=== PATIENT | male | born 1940 | race Hispanic/Latino ===

== ENCOUNTER 2016-12-21 18:20 | Inpatient (IN) | payer MEDICARE ==
[2016-12-21 19:12] LABS: Basophils % (Auto) 0.3 % (0.0-1.8); Eosinophils % (Auto) 1.6 % (0.0-4.3); Hematocrit 36.6 % (35.5-45.6); Hemoglobin 12.7 gm/dl (11.8-15.2); Mean Corpuscular HGB Conc 35 % (32-34); Mean Corpuscular Hemoglobin 32 pg (28-32); Mean Corpuscular Volume 93 fl (84-94); Platelet Count 272 K/mm3 (140-440); Red Blood Count 3.92 M/mm3 (3.65-5.03); Red Cell Distribution Width 14.4 % (13.2-15.2); White Blood Count 8.3 K/mm3 (4.5-11.0)
[2016-12-21 19:27] LABS: Alanine Aminotransferase 11 units/L (7-56); Albumin 3.8 g/dL (3.9-5); Albumin/Globulin Ratio 1.2 %; Alkaline Phosphatase 109 units/L (35-129); Anion Gap 18 mmol/L; BUN/Creatinine Ratio 14.28; Blood Urea Nitrogen 10 mg/dL (9-20); Calcium 9.1 mg/dL (8.4-10.2); Carbon Dioxide 26 mmol/L (22-30); Chloride 98.9 mmol/L (98-107); Creatine Kinase 26 units/L (55-170); Glucose 152 mg/dL (75-100); Lipase 31 units/L (13-60); Potassium 3.8 mmol/L (3.6-5.0); Sodium 139 mmol/L (137-145)
[2016-12-21 19:38] LABS: Bilirubin,Urine NEG (Negative); Blood,Urine NEG (Negative); Ketones,Urine NEG (Negative); Leukocyte Esterase,Urine NEG (Negative); Nitrite,Urine NEG (Negative); Protein,Urine <15 mg/dL mg/dL (Negative); Urobilinogen,Urine < 2.0 mg/dL (<2.0); WBC,Urine < 1.0 /HPF (0.0-6.0)
[2016-12-21 19:50] LABS: Creatine Kinase MB < 1.0 ng/mL (0.0-4.0)
--- NOTE | 2016-12-21 20:21 | Cat Scan Report ---
FINAL REPORT EXAM: CT HEAD/BRAIN WO CON HISTORY: blurred vision and dizziness COMPARISON: None available. TECHNIQUE: Axial images obtained skull base through vertex. FINDINGS: No acute intracranial hemorrhage, midline shift or pathologic extra axial fluid collection. Age related volume loss with compensatory dilatation of the ventricular system and chronic small vessel ischemic disease. Appears to be mild diffuse cerebral edema. 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 This has a area probable spared nodular cortex at its periphery. Intraparenchymal lesion cannot be entirely excluded. Focal volume loss inferior left frontal lobe measuring 2.9 x 0.9 centimeters. This is compatible sequelae of prior ischemia or trauma. Opacification bilateral sphenoid sinuses and right maxillary sinus. Mastoid air cells are clear. IMPRESSION: There is mild diffuse cerebral edema involving the bilateral cerebral hemispheres of uncertain etiology. Some this may relate to underlying small vessel disease. Possibility of active inflammation the brain parenchyma cannot be excluded. MRI the brain with without contrast suggested for further evaluation. Remote appearing infarct left parietal lobe with area of probable spared nodular cortex at its periphery. This finding could also be further evaluated by MRI with without contrast. Mild to moderate volume loss and chronic small vessel ischemic disease. Focal volume loss left frontal lobe compatible sequelae of prior trauma or ischemia.
--- NOTE | 2016-12-21 20:44 | Emergency Department Report ---
HPI - General Chief Complaint: Abdominal Pain Time Seen by Provider: 12/21/16 20:11 - HPI HPI: This is a 76-year-old male who presents to the emergency department by EMS from his [facility] with complaint of a 4-5 day history of some left lower quadrant abdominal and flank pain. He last had a bowel movement about 2 days ago. He says that he does have a history of a previous bowel obstruction. Otherwise he has a past medical history of GERD and seizures. The patient also complains of some blurry vision over the same amount of time. He denies any headache, slurred speech, chest pain, shortness of breath. His daughter is bedside who says that lately he has been having a decline in mental status and she has concern or suspicion for dementia. He has a primary care physician Dr. Lopes, but she is going to find another physician closer to where he lives. ED Past Medical Hx - Past Medical History Hx GERD: Yes Hx Seizures: Yes Hx Psychiatric Treatment: Yes (anxiety) Additional medical history: previous bowel obstruction - Social History Smoking Status: Unknown if ever smoked Substance Use Type: None ED Review of Systems ROS: Stated complaint: LEFT SIDED ABD PAIN,BLURRED VISION Other details as noted in HPI Comment: All other systems reviewed and negative Constitutional: denies: chills, fever Eyes: vision change. denies: eye pain, eye discharge ENT: denies: ear pain, throat pain Respiratory: denies: cough, shortness of breath, wheezing Cardiovascular: denies: chest pain, palpitations Gastrointestinal: abdominal pain. denies: nausea, vomiting Genitourinary: denies: urgency, dysuria Musculoskeletal: denies: back pain, joint swelling, arthralgia Skin: denies: rash, lesions Neurological: denies: headache, weakness, paresthesias Physical Exam - Physical Exam Vital Signs: Vital Signs 12/21/16 18:29 Temperature 98.6 F Pulse Rate 68 Respiratory 15 Rate Blood Pressure 115/36 O2 Sat by Pulse 97 Oximetry Physical Exam: GENERAL: The patient is well-developed well-nourished. HEENT: Normocephalic. Atraumatic. Extraocular motions are intact. Patient has moist mucous membranes. Pupils equal reactive to light bilaterally. No nystagmus. NECK: Supple. Trachea is midline. CHEST/LUNGS: Clear to auscultation. There is no respiratory distress noted. HEART/CARDIOVASCULAR: Regular. There is no tachycardia. There is no gallop rub or murmur. ABDOMEN: Abdomen is soft, nontender. Patient has normal bowel sounds. There is no abdominal distention. SKIN: Skin is warm and dry. NEURO: The patient is awake, alert, and oriented but sometimes the patient is slow to respond and cannot remember answers to questions. The patient is cooperative. The patient has no sensory or motor deficits. The patient has normal speech. MUSCULOSKELETAL: There is no tenderness or deformity. There is no limitation range of motion. There is no evidence of acute injury. ED Course Vital Signs 12/21/16 18:29 Temperature 98.6 F Pulse Rate 68 Respiratory 15 Rate Blood Pressure 115/36 O2 Sat by Pulse 97 Oximetry - Consultations Consultation #1: I spoke to the neurosurgeon at [place], Dr. Ramirez, who recommended a CT angiography of the head and neck. This would show us if there is any type of thrombus or given the IV contrast if there is any small tumor or malignancy as he thinks that the mild diffuse cerebral edema may be secondary to a recent CVA. If the CT angiography does not show any acute process that he does not feel that the person is in any emergent need for transfer but does recommend admission for MRI and/or further workup. 12/21/16 22:34 ED Medical Decision Making - Lab Data Result diagrams: 12/21/16 18:46 12/21/16 18:46 - EKG Data -: EKG Interpreted by Me EKG shows normal: sinus rhythm (with sinus arrhythmia), axis, intervals, QRS complexes, ST-T waves Rate: normal - EKG Data When compared to previous EKG there are: previous EKG unavailable Interpretation: normal EKG - Radiology Data Radiology results: report reviewed interpreted by me: Abdominal x-ray shows nonspecific nonobstructive bowel gas. CT of the head without contrast shows mild diffuse cerebral edema involving the bilateral cerebral hemispheres of uncertain etiology. Some of this may relate to underlying small vessel disease. Possibility of active inflammation of the brain parenchyma cannot be excluded. Recommend MRI. Remote-appearing infarct of left parietal lobe with area of probable spared nodular cortex its periphery. Mild to moderate volume loss and chronic small vessel ischemic disease. Focal volume loss of left frontal lobe compatible sequela of prior trauma or ischemia. CT angiography of the head shows moderate severe calcified plaque along the cavernous in the supraclinoid portions of the internal carotid arteries. Greatest degree of stenosis of 50%. No occlusion. Mild to moderate focal calcified plaque along the right V4 segment of the vertebral artery with estimated stenosis of approximately 30%. Otherwise major intracranial arterial vessels are patent. No area of abnormal hypervascular enhancement of the brain parenchyma. No evidence of arterial malformation. There is persistent prominence of the subcortical white matter along the superior and posterior margins of the right bilateral cerebral hemisphere concerning for cerebral edema. CT angiography of the neck shows moderate severe calcified plaque with the left carotid bifurcation. Estimated stenosis of the proximal 40%. Length of stenosis about 1 cm. Moderate calcified plaque at the right carotid bifurcation with estimated stenosis at the origin of the external carotid artery of 50%. No high-grade stenosis or occlusion of the extracranial portions of the common carotid, internal carotid, vertebral arteries. CT of the abdomen and pelvis without contrast shows no gross focal inflammatory changes of the abdomen and pelvis. Moderate severe calcified plaque along the abdominal aorta. Nodular densities in the septal thickening with associated bronchial wall thickening of the right lower lobe and lingula. Mild to moderate anterior wedging deformity at T12 and T11 level suspected to be chronic. No bony retropulsion. - Medical Decision Making 76-year-old male presents emergency Department with left lower quadrant and/or flank pain with history of previous obstruction. He also complains of some blurry vision going over the past 4-5 days as well. Speaking with his daughter , she has some concern for some signs of dementia or altered mental status. CT of the head was done that showed mild diffuse cerebral edema. After speaking with neurosurgery at [place] a CT angiography of the head and neck was done that showed carotid stenosis but otherwise no obvious thrombus, malignancy and therefore safe by neurosurgery standards to remain at [facility] versus transfer. Regarding his abdominal pain, CT did not show any signs of obstruction. His labs are otherwise mostly unremarkable and does not show any etiology of his symptoms. Vital signs stable throughout his ED course. Patient will be admitted to hospital for further evaluation and has been accepted for admission by the hospitalist. - Differential Diagnosis CVA, TIA, dementia, colitis, diverticulitis, bowel obstruction Critical Care Time: No Critical care attestation.: If time is entered above; I have spent that time in minutes in the direct care of this critically ill patient, excluding procedure time. ED Disposition Clinical Impression: Cerebral edema, Subtherapeutic serum phenytoin level Abdominal pain Qualifiers: Abdominal location: left lower quadrant Qualified Code(s): R10.32 - Left lower quadrant pain Carotid stenosis Qualifiers: Laterality: unspecified laterality Qualified Code(s): I65.29 - Occlusion and stenosis of unspecified carotid artery Disposition: OP ADMIT IP TO THIS HOSP Is pt being admited?: Yes Condition: Stable Referrals: PRIMARY CARE, [Primary Care Provider] - 3-5 Days Time of Disposition: 00:51
--- NOTE | 2016-12-21 21:06 | XRay Report ---
FINAL REPORT EXAM: XR ABDOMEN 2V HISTORY: Abd pain COMPARISON: None available. FINDINGS: AP views of the abdomen obtained. No gross free air. Nonobstructive bowel gas pattern. Prominent vascular calcification left upper abdomen. IMPRESSION: Nonobstructive bowel gas pattern.
--- NOTE | 2016-12-21 23:00 | Cat Scan Report ---
FINAL REPORT EXAM: CT ABDOMEN PELVIS WO CON HISTORY: Abd pain, LLQ COMPARISON: Plain films of the abdomen from the same date. TECHNIQUE: Contiguous axial images were obtained. Additional sagittal and coronal reformatted images were obtained. FINDINGS: Nonspecific nodular densities and septal thickening at the right lung base which could reflect edema or infection. Mild associated bronchial wall thickening. Tiny hiatal hernia. No calcified gallstones. The gallbladder is contracted. This limits evaluation wall thickening. Liver, spleen, pancreas and adrenal glands are grossly unremarkable. No nephrolithiasis or hydronephrosis. Aorta and is normal in caliber. Severe calcification of the abdominal aorta. Infrarenal aorta measures up to 2.5 centimeters in diameter. No distal ureteral or urinary bladder calculi. No free fluid or lymphadenopathy in the pelvic cavity. Prostate gland is grossly unremarkable. Probable prior left inguinal hernia repair. There may be fluid along the left spermatic cord. Moderate stool in the colon. No focal inflammatory changes the bowel. The appendix is normal in caliber. Bony pelvis and lumbar spine are grossly intact. Mild to moderate anterior wedging deformities of the T11 and T12 vertebral bodies which appear chronic. No bony retropulsion. IMPRESSION: No gross focal inflammatory changes of the abdomen and pelvis. Moderate severe calcified plaque along the abdominal aorta. Nodular densities in septal thickening with associated bronchial wall thickening right lower lobe and lingula. These may relate to sequelae of prior inflammation. Active infection or edema cannot be excluded. Mild to moderate anterior wedging deformity at the T11 and T12 levels suspected to be chronic. No bony retropulsion.
--- NOTE | 2016-12-21 23:20 | Cat Scan Report ---
FINAL REPORT EXAM: CT ANGIO NECK HISTORY: AMS, cerebral edema COMPARISON: None available. TECHNIQUE: Contiguous axial images were obtained. Additional sagittal and coronal reformatted images were obtained. Max intensity projection images. Administration of IV contrast given per institution protocol. Images submitted for interpretation. 100 cc Omnipaque 350 FINDINGS: Aortic arch is not included on the exam. Mild calcified plaque within the proximal subclavian arteries bilaterally and at the origin of the left vertebral artery. No significant associated stenosis. Mild calcified plaque along the mid to distal left common carotid artery without significant associated stenosis. Remaining extracranial portions of the vertebral arteries are widely patent. Codominant vertebral arteries. Moderate calcified plaque at the right carotid bifurcation. Estimated stenosis at the origin of the external carotid artery is at least 50 percent. Estimated stenosis at the origin the right internal carotid artery is less than 30 percent by NASCET criteria. Moderate severe calcified plaque at the left carotid bifurcation distal to the origin, there is prominent calcified plaque. The lumen at that level narrows to 3 millimeters in more distally measures 5 millimeters compatible with least 40 percent stenosis focally. Length of stenosis approximately 1 centimeter. Remaining extracranial portions of the internal carotid arteries are patent. Airway is patent. True vocal cords are symmetric. Thyroid gland is small in size. Salivary glands are grossly unremarkable. No gross abnormal soft tissue mass. Prominent scarring at the lung apices. Moderate severe degenerative changes of the cervical spine. Opacification right maxillary sinus sphenoid sinuses as well as posterior right ethmoid air cells. IMPRESSION: Moderate severe calcified plaque within the left carotid bifurcation. Estimated stenosis approximately 40 percent by NASCET criteria. Length of stenosis 1 centimeter. Moderate calcified plaque at the right carotid bifurcation. Estimated stenosis at the origin of the external carotid artery is 50 percent. Estimated stenosis at the origin the right internal carotid artery is less than 30 percent. No high-grade stenosis or occlusion of the extracranial portions of the common carotid, internal carotid, vertebral arteries.
--- NOTE | 2016-12-21 23:24 | Cat Scan Report ---
FINAL REPORT EXAM: CT ANGIO HEAD HISTORY: AMS, cerebral edema COMPARISON: CT of the head from the same date. TECHNIQUE: Contiguous axial images were obtained. Additional sagittal and coronal reformatted images were obtained. Max intensity projection images. 100 cc Omnipaque 350. FINDINGS: Moderate severe calcified plaque along the cavernous is supraclinoid portions of the internal carotid arteries. No high-grade stenosis. Greatest degree of stenosis approximately 50 percent. A1 segments are symmetric in caliber. Anterior communicating artery is present. Symmetric branching and opacification of the anterior and middle cerebral arteries. Mild to moderate focal calcified plaque along the mid right V4 segment of the vertebral artery. Estimated stenosis less than 30 percent. Left vertebral artery is patent. Basilar artery is patent. Single bilateral superior cerebellar arteries. P1 through P3 proximal segments are patent and symmetric in caliber. Bilateral posterior communicating arteries are not visualized and may be absent. No early draining vein. No area of abnormal hypervascular enhancement. Gross normal opacification major dural venous sinuses. Re-demonstration of focal areas of volume loss and low-attenuation left frontal lobe and left parietal lobe. There is a vessel extending through the left parietal lobe area of low-attenuation which appears to be an incidental finding. No tangle of vessels to suggest underlying AVM. No associated parenchymal enhancement. IMPRESSION: Moderate severe calcified plaque along the cavernous is supraclinoid portions of the internal carotid arteries. Greatest degree of stenosis 50 percent. No occlusion. Mild to moderate focal calcified plaque along the right V4 segment of vertebral artery. Estimated stenosis approximately 30 percent. Otherwise, major intracranial arterial vessels are patent. No area of abnormal hypervascular enhancement of the brain parenchyma. No evidence of arterial malformation. There is persistent prominence of the subcortical white matter along the superior and posterior margins right bilateral cerebral hemispheres concerning for cerebral edema. MRI the brain with without contrast suggested for further evaluation. Mild inflammation cannot be excluded.
[2016-12-21] MEDS ORDERED: BABY ASPIRIN PO ONE (23:27)
[2016-12-21] MEDS ORDERED: SODIUM CHLORIDE FLUSH SYRINGE 10 ML IV PRN (23:57)
[2016-12-21] MEDS ORDERED: DULCOLAX PR PRN (23:57)
[2016-12-21] MEDS ORDERED: ZOFRAN IV PRN (23:57)
[2016-12-21] MEDS ORDERED: TYLENOL PO PRN (23:57)
--- NOTE | 2016-12-21 23:57 | History and Physical Report ---
History of Present Illness Date of examination: 12/21/16 History of present illness: 76 man with history of anxiety, GERD, seizure was brought to the emergency room for confusion. He complained of abdominal pain per the emergency room physician. The patient is unable to give a history, he is very forgetful. He complined of blurry vision, states he had memory problem since the last 6 months. A review of systems is very difficult to obtain PAST MEDICAL HISTORY:anxiety, GERD, seizure PAST SURGICAL HISTORY:None FAMILY HISTORY:Hypertension SOCIAL HISTORY:Denies alcohol, tobacco and drugs Medications and Allergies Allergies Allergy/AdvReac Type Severity Reaction Status Date / Time Unable to Assess Allergy Unverified 12/21/16 18:37 Home Medications Medication Instructions Recorded Confirmed Last Taken Type Alendronate Sodium [Fosamax] 70 mg PO QWEEK 12/22/16 12/22/16 Unknown History Cyanocobalamin (Vitamin B-12) 1,000 mcg IJ QMONTH 12/22/16 12/22/16 Unknown History [B-12 Kit] Dutasteride [Avodart] 0.5 mg PO DAILY 12/22/16 12/22/16 Unknown History Folic Acid [Folvite] 1 mg PO QDAY 12/22/16 12/22/16 Unknown History Gabapentin [Neurontin] 300 mg PO QID 12/22/16 12/22/16 Unknown History Ibuprofen [Motrin] 400 mg PO TID PRN 12/22/16 12/22/16 Unknown History Omeprazole 40 mg PO DAILY 12/22/16 12/22/16 Unknown History Phenytoin [Dilantin] 300 mg PO QHS 12/22/16 12/22/16 Unknown History Propranolol HCl [Propranolol HCl 60 mg PO DAILY 12/22/16 12/22/16 Unknown History ER] Simvastatin [Zocor TAB] 20 mg PO QHS 12/22/16 12/22/16 Unknown History Tamsulosin [Flomax] 0.4 mg PO QDAY 12/22/16 12/22/16 Unknown History diphenhydrAMINE [Benadryl CAP] 50 mg PO DAILY 12/22/16 12/22/16 Unknown History lamoTRIgine [LaMICtal Xr] 200 mg PO QDAY 12/22/16 12/22/16 Unknown History levETIRAcetam [Keppra TAB] 750 mg PO BID 12/22/16 12/22/16 Unknown History Exam - Physical Exam Narrative exam: Gen. appearance: Patient lying in bed, no apparent distress HEENT: Normocephalic, atraumatic, pupils equally round and reactive to light, extraocular movement intact, and no sclericterus,. No JVD or thyromegaly or nodule,neck supple, no carotid bruit ,mucous membranes moist, no exudate or erythema Heart: S1, S2, regular rate and rhythm Lungs: Clear to auscultation bilaterally, breathing comfortable Abdomen: Positive bowel sounds, nontender, nondistended, no organomegaly Extremity: No edema, cyanosis, clubbing Skin: No rash, nodules, warm, dry Neuro: Oriented 3, cranial nerves II-12 intact, speech is fluent, motor and sensory intact - Constitutional Vitals: Temp Pulse Resp BP Pulse Ox 98.6 F 68 15 115/36 97 12/21/16 18:29 12/21/16 18:29 12/21/16 18:29 12/21/16 18:29 12/21/16 18:29 Results - Labs CBC & Chem 7: 12/21/16 18:46 12/21/16 18:46 Labs: Abnormal lab results 12/21/16 12/21/16 12/21/16 Range/Units 18:46 18:46 18:46 MCHC 35 H (32-34) % Vernon % (Auto) 7.7 H (0.0-7.3) % Seg Neutrophils % 76.4 H (40.0-70.0) % Creatinine 0.7 L (0.8-1.5) mg/dL Glucose 152 H (75-100) mg/dL Total Creatine Kinase 26 L (55-170) units/L Albumin 3.8 L (3.9-5) g/dL Phenytoin (10.0-20.0) mg/L 12/21/16 Range/Units 18:54 MCHC (32-34) % Vernon % (Auto) (0.0-7.3) % Seg Neutrophils % (40.0-70.0) % Creatinine (0.8-1.5) mg/dL Glucose (75-100) mg/dL Total Creatine Kinase (55-170) units/L Albumin (3.9-5) g/dL Phenytoin 6.1 L (10.0-20.0) mg/L - Imaging and Cardiology CT scan - abdomen: report reviewed CT Scan - head: report reviewed CT scan - pelvis: report reviewed Assessment and Plan Head and Neck CTA Assessment Possible CVA anxiety GERD seizure Plan Admit to medicine Obtain MRI, do neuro checks, swallow screen Consult neurology, PT/OT Start aspirin, statin, appropiate outpatient medications Start dvt prophalaxis
[2016-12-22] MEDS ORDERED: ZOCOR ONE (01:26)
--- NOTE | 2016-12-22 05:31 | Admit Criteria Form ---
Admission Criteria Documentation: ABDOMINAL PAIN Clinical Indications for Admission to Inpatient Care (Place 'X' for any and all applicable criteria): Admission is indicated for ANY ONE of the following(1)(2)(3)(4)(5): [X]I. Inpatient admission required rather than observation care (Also use Abdominal Pain: Observation Care, as appropriate) because of ANY ONE of the following: [ ]a) Severe pain requiring acute inpatient management [X]b) Identification of etiology/finding that requires inpatient care (eg, aortic dissection, free air) [ ]c) Absent bowel sounds with complete ileus(6) [ ]d) Suspected toxic megacolon [ ]e) Severe electrolyte abnormalities requiring inpatient care [ ]f) High fever or infection requiring inpatient admission as indicated by ANY ONE of following(7)(8): [ ] i) Appropriate outpatient or observational care antimicrobial treatment unavailable, not effective, or not feasible [ ] ii) Documented bacteremia [ ] iii) Temperature > 104.9 degrees F (oral) [ ] iv) T >103.1 F (oral) or < 96.8 F(rectal) that does not respond to all emergency treatment measures [ ]g) Signs of intestinal obstruction [B] [ ]h) Hemodynamic instability [ ]i) IV fluid to replace significant ongoing losses (greater than 3 L/m2 per day) (12)(13) [ ]j) Percutaneous or open drainage (eg, abscess, biliary tract ) procedures [ ]k) Parenteral nutrition regimen that must be implemented on inpatient basis [ ]l) Other condition,treatment or monitoring requiring inpatient admission. [ ]II. Peritoneal signs present [ ]III. Surgery needed that cannot be performed on an ambulatory basis. [ ]IV. Evaluation requires patient to not eat or drink for extended period ( eg, more than 24 hours). [ ]V. Contraindications and/or Inappropriate clinical situations for Observational Care in patients with abdominal pain, when ANY ONE of the following is required: [ ]a) Thorough evaluation is required to prevent catastrophic events due to delays in diagnosing (e.g.Mesenteric ischemia) 1,3 [ ]b) Patient with severe pathology or with chronic symptoms unlikely to improve in the ED stay (3) [ ]. General contraindications and/or Inappropriate clinical situations for Observational Care in patients with abdominal pain, when ANY ONE of the following is required: [ ]a) Prediction of prolongation of LOS based on ANY ONE of the following may be considered as a contraindication for observational care 2, 3, 4, 5, 6, 7, 8, 9, 10, 11 [ ]i) Age > 65 yrs. [ ]ii) Patient arriving by ambulance [ ]iii) Patient with high acuity [ ]iv) Patient requiring vital sign monitoring [ ]v) Patient on IV medication [ ]b) Systolic blood pressures 180mmHg 3,12 [ ]c) Patient with altered mental status including delirium and other alteration of consciousness, (3) [ ]d) Patient whose discharge disposition will be to a care home home or rehabilitation home should not be managed in Emergency Department Observation Unit. CMS rule requires 3 days hospital stay before such placement.3,13 [ ]e) Patient with failure to thrive due to broad array of etiologies 3,16,17 [ ]f) Inability to ambulate 3,14 Extended stay beyond goal length of stay may be needed for(2)(3): [ ]a) Persistent abdominal pain with suspected intra-abdominal process [ ]b) Diagnosed condition requiring continued stay (e.g., pancreatitis, complicated diverticulitis) [ ]c) Surgery (e.g., colectomy) The original [facility] content created by [employer] has been revised. The portions of the content which have been revised are identified through the use of italic text or in bold, and [email or web address] has neither reviewed nor approved the modified material.All other unmodified content is copyright [facility]. Please see references footnoted in the original [facility] edition 2016 Admission Criteria Met: Yes
[2016-12-22] MEDS: LOVENOX SUB-Q SCH (09:36)
[2016-12-22] MEDS: ASPIRIN PO SCH (09:36)
[2016-12-22] MEDS ORDERED: LOVENOX SUB-Q SCH (10:00)
--- NOTE | 2016-12-22 12:50 | Consultation ---
History of Present Illness - Reason for Consult Consult date: 12/22/16 seizure - History of Present Illness prior hx of seizures and is on keppra I have re-ordered meds and will rec EEG thanks lilian dx to patient. Medications and Allergies Allergies Allergy/AdvReac Type Severity Reaction Status Date / Time Unable to Assess Allergy Unverified 12/21/16 18:37 Home Medications Medication Instructions Recorded Confirmed Last Taken Type Unobtainable 12/22/16 12/22/16 Unknown History Active Meds: Active Medications Acetaminophen (Tylenol) 650 mg PO Q4H PRN PRN Reason: Pain, Mild (1-3) Aspirin (Aspirin) 325 mg PO QDAY [facility] Last Admin: 12/22/16 09:36 Dose: 325 mg Bisacodyl (Dulcolax) 10 mg PA QDAY PRN PRN Reason: Constipation Enoxaparin Sodium (Lovenox) 40 mg SUB-Q QDAY@1000 LUCY Last Admin: 12/22/16 09:36 Dose: 40 mg Magnesium Hydroxide (Milk Of Magnesia) 30 ml PO Q4H PRN PRN Reason: Constipation Ondansetron HCl (Zofran) 4 mg IV Q8H PRN PRN Reason: N/V unrelieved by Reglan Simvastatin (Zocor) 20 mg PO QHS [facility] Sodium Chloride (Sodium Chloride Flush Syringe 10 Ml) 10 ml IV PRN PRN PRN Reason: LINE FLUSH Exam - Constitutional Vitals: Temp Pulse Resp BP Pulse Ox 97.7 F 71 18 130/80 95 12/22/16 09:11 12/22/16 09:11 12/22/16 09:11 12/22/16 09:11 12/22/16 09:11 Results - Labs CBC & Chem 7: 12/21/16 18:46 12/21/16 18:46 Labs: Abnormal lab results 12/22/16 Range/Units 04:00 LDL Cholesterol Direct 47 L (50-130) mg/dL HDL Cholesterol 78 H (40-59) mg/dL
--- NOTE | 2016-12-22 16:14 | Progress Note ---
Assessment and Plan Assessment and plan: --Neurological symptoms/Possible CVA CT head negative, not candidate for TPA Neurology workup is in progress, aspirin and statin --anxiety; resume his home medications Supportive care --GERD; Protonix --seizure; seizure precautions, continue antiepileptics medications --Full CODE STATUS --DVT prophylaxis with Lovenox Physical therapy occupational therapy rehabilitation Neuro evaluation --DC planning. Case management Patient's condition assessment and plan reviewed with the patient And family members at bedside History Interval history: Patient seen and evaluated medical records reviewed Patient feels better slightly confused intermittently No new complaints Family the bedside Hospitalist Physical - Constitutional Vitals: Temp Pulse Resp BP Pulse Ox 97.7 F 71 18 130/80 95 12/22/16 09:11 12/22/16 09:11 12/22/16 09:11 12/22/16 09:11 12/22/16 09:11 General appearance: Present: no acute distress, well-nourished, other (confused at times) - EENT Eyes: Present: PERRL, EOM intact - Neck Neck: Present: supple, normal ROM - Respiratory Respiratory effort: normal Respiratory: bilateral: diminished, negative: rales, rhonchi, wheezing - Cardiovascular Rhythm: regular Heart Sounds: Present: S1 & S2 - Extremities Extremities: no ischemia, pulses intact, pulses symmetrical - Abdominal General gastrointestinal: soft, non-tender, non-distended, normal bowel sounds - Integumentary Integumentary: Present: clear, warm - Psychiatric Psychiatric: appropriate mood/affect, cooperative - Neurologic Neurologic: moves all extremities Results - Labs CBC & Chem 7: 12/21/16 18:46 12/21/16 18:46 Labs: Laboratory Last Values WBC 8.3 K/mm3 (4.5-11.0) 12/21/16 18:46 RBC 3.92 M/mm3 (3.65-5.03) 12/21/16 18:46 Hgb 12.7 gm/dl (11.8-15.2) 12/21/16 18:46 Hct 36.6 % (35.5-45.6) 12/21/16 18:46 MCV 93 fl (84-94) 12/21/16 18:46 MCH 32 pg (28-32) 12/21/16 18:46 MCHC 35 % (32-34) H 12/21/16 18:46 RDW 14.4 % (13.2-15.2) 12/21/16 18:46 Plt Count 272 K/mm3 (140-440) 12/21/16 18:46 Lymph % (Auto) 14.0 % (13.4-35.0) 12/21/16 18:46 [place] % (Auto) 7.7 % (0.0-7.3) H 12/21/16 18:46 Eos % (Auto) 1.6 % (0.0-4.3) 12/21/16 18:46 Baso % (Auto) 0.3 % (0.0-1.8) 12/21/16 18:46 Lymph # 1.2 K/mm3 (1.2-5.4) 12/21/16 18:46 [place] # 0.6 K/mm3 (0.0-0.8) 12/21/16 18:46 Eos # 0.1 K/mm3 (0.0-0.4) 12/21/16 18:46 Baso # 0.0 K/mm3 (0.0-0.1) 12/21/16 18:46 Seg Neutrophils % 76.4 % (40.0-70.0) H 12/21/16 18:46 Seg Neutrophils # 6.3 K/mm3 (1.8-7.7) 12/21/16 18:46 Sodium 139 mmol/L (137-145) 12/21/16 18:46 Potassium 3.8 mmol/L (3.6-5.0) 12/21/16 18:46 Chloride 98.9 mmol/L (98-107) 12/21/16 18:46 Carbon Dioxide 26 mmol/L (22-30) 12/21/16 18:46 Anion Gap 18 mmol/L 12/21/16 18:46 BUN 10 mg/dL (9-20) 12/21/16 18:46 Creatinine 0.7 mg/dL (0.8-1.5) L 12/21/16 18:46 Estimated GFR > 60 ml/min 12/21/16 18:46 BUN/Creatinine Ratio 14.28 % 12/21/16 18:46 Glucose 152 mg/dL (75-100) H 12/21/16 18:46 Calcium 9.1 mg/dL (8.4-10.2) 12/21/16 18:46 Total Bilirubin 0.30 mg/dL (0.1-1.2) 12/21/16 18:46 AST 11 units/L (5-40) 12/21/16 18:46 ALT 11 units/L (7-56) 12/21/16 18:46 Alkaline Phosphatase 109 units/L (35-129) 12/21/16 18:46 Total Creatine Kinase 26 units/L (55-170) L 12/21/16 18:46 CK-MB (CK-2) < 1.0 ng/mL (0.0-4.0) 12/21/16 18:46 CK-MB (CK-2) Rel Index 3.8 (0-4) 12/21/16 18:46 Troponin T < 0.010 ng/mL (0.00-0.029) 12/21/16 18:46 Total Protein 7.0 g/dL (6.3-8.2) 12/21/16 18:46 Albumin 3.8 g/dL (3.9-5) L 12/21/16 18:46 Albumin/Globulin Ratio 1.2 % 12/21/16 18:46 Triglycerides 104 mg/dL (2-149) 12/22/16 04:00 Cholesterol 145 mg/dL (50-199) 12/22/16 04:00 LDL Cholesterol Direct 47 mg/dL (50-130) L 12/22/16 04:00 HDL Cholesterol 78 mg/dL (40-59) H 12/22/16 04:00 Cholesterol/HDL Ratio 1.85 % 12/22/16 04:00 Lipase 31 units/L (13-60) 12/21/16 18:46 Urine Color Yellow (Yellow) 12/21/16 19:09 Urine Turbidity Clear (Clear) 12/21/16 19:09 Urine pH 6.0 (5.0-7.0) 12/21/16 19:09 Ur Specific [place] 1.010 (1.003-1.030) 12/21/16 19:09 Urine Protein <15 mg/dl mg/dL (Negative) 12/21/16 19:09 Urine Glucose (UA) Neg mg/dL (Negative) 12/21/16 19:09 Urine Ketones Neg mg/dL (Negative) 12/21/16 19:09 Urine Blood Neg (Negative) 12/21/16 19:09 Urine Nitrite Neg (Negative) 12/21/16 19:09 Urine Bilirubin Neg (Negative) 12/21/16 19:09 Urine Urobilinogen < 2.0 mg/dL (<2.0) 12/21/16 19:09 Ur Leukocyte Esterase Neg (Negative) 12/21/16 19:09 Urine WBC (Auto) < 1.0 /HPF (0.0-6.0) 12/21/16 19:09 Urine RBC (Auto) 1.0 /HPF (0.0-6.0) 12/21/16 19:09 U Epithel Cells (Auto) < 1.0 /HPF (0-13.0) 12/21/16 19:09 Phenytoin 6.1 mg/L (10.0-20.0) L 12/21/16 18:54
[2016-12-22] MEDS: NEURONTIN PO SCH ×2 (17:50→21:45)
[2016-12-22] MEDS: DILANTIN PO SCH (21:45)
[2016-12-22] MEDS: ZOCOR PO SCH (21:45)
[2016-12-22] MEDS: KEPPRA PO SCH (21:45)
[2016-12-22] MEDS ORDERED: NON-FORMULARY (Levetiracetam [Keppra Tab] 750 MG) PO SCH (22:00)
[2016-12-22] MEDS ORDERED: ZOCOR PO SCH (22:00)
[2016-12-23] MEDS ORDERED: LAMOTRIGINE 200 MG PO SCH (10:00)
[2016-12-23] MEDS ORDERED: ATIVAN IV NR ×2 (10:00→16:30)
[2016-12-23] MEDS ORDERED: NON-FORMULARY (Dutasteride [Avodart] 0.5 MG) PO SCH (10:00)
[2016-12-23] MEDS: KEPPRA PO SCH ×2 (10:09→22:30)
[2016-12-23] MEDS: FOLVITE PO SCH (10:10)
[2016-12-23] MEDS: ASPIRIN PO SCH (10:10)
[2016-12-23] MEDS: FLOMAX PO SCH (10:10)
[2016-12-23] MEDS: LOVENOX SUB-Q SCH (10:11)
[2016-12-23] MEDS: NEURONTIN PO SCH ×4 (10:12→22:30)
[2016-12-23] MEDS: INDERAL LA PO SCH (10:40)
--- NOTE | 2016-12-23 17:52 | Magnetic Resonance Report ---
FINAL REPORT EXAM: MR BRAIN WO CON HISTORY: stroke TECHNIQUE: Multi sequence multi planar MR images obtained of the brain without gadolinium. PRIORS: CT scan of the head from 12/21/2016. FINDINGS: The septum pellucidum is shifted to the right side approximately 4.8 millimeters. There is effacement of the posterior horn of the left lateral ventricle. There is heterogeneous hyperintense T2 and FLAIR signal in the left parietal lobe and occipital lobe. There is asymmetric expansion of the left side of the posterior aspect of the corpus callosum. This region has heterogeneous restricted diffusion. Subtle hyperintense FLAIR signal is seen extending into the posterior aspect of the left frontal lobe. There is hyperintense T2 and FLAIR signal in the periventricular white matter of right parietal lobe. 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 There is malacia in the inferior aspect of the anterior frontal lobes, bilaterally. No gross abnormality is seen in the brainstem or cerebellum. Orbits appear fairly symmetric. The right maxillary sinus is opacified. There is mucosal thickening in the sphenoid sinus and ethmoidal air cells on the right side. The craniocervical junction appears normal. IMPRESSION: 1. Abnormal appearance to the left parietal lobe and occipital lobe with local mass effect as described. This correlates with the prior CT findings. The appearance is suspicious for an infiltrating neoplastic process. Differential diagnosis would include infarct, but this is thought to be less likely. This can be further characterized with gadolinium enhanced MRI of the brain. Biopsy may ultimately be necessary for diagnosis. 2. There malacia in the inferior aspect of the anterior frontal lobes, bilaterally. This may be related to prior trauma. 3. Paranasal sinus disease is noted. UNF
--- NOTE | 2016-12-23 18:00 | Progress Note ---
Assessment and Plan Assessment and plan: --Neurological symptoms/Possible CVA CT head edema brain ,not candidate for TPA Schedule for MRI today, we will sedate with Ativan 2 mg prior to MRI Encouraged family to be present during the test to calm the patient --Metabolic encephalopathy; multifactorial Underlying dementia, brain edema, workup is in progress --anxiety; resume his home medications Supportive care --GERD; continue Protonix --History of seizure; seizure precautions, continue antiepileptics medications --Full CODE STATUS --DVT prophylaxis with Lovenox Physical therapy occupational therapy rehabilitation Neurology evaluation and recommendations noted and appreciated --DC planning. Case management Follow pending studies Patient's condition assessment and plan reviewed with the patient's daughter Also discussed with the nurse and case management History Interval history: Patient seen and evaluated this morning medical records reviewed Patient refused MRI yesterday, today we will try MRI with sedation Ativan Patient remains confused, responds to simple questions appropriately intermittently Not in acute distress Hospitalist Physical - Constitutional Vitals: Temp Pulse Resp BP Pulse Ox 98.2 F 81 20 122/58 96 12/23/16 12:00 12/23/16 12:00 12/23/16 12:00 12/23/16 12:00 12/23/16 12:00 General appearance: Present: no acute distress, well-nourished, other (confused at times) - EENT Eyes: Present: PERRL, EOM intact - Neck Neck: Present: supple, normal ROM - Respiratory Respiratory effort: normal Respiratory: bilateral: diminished, negative: rales, rhonchi, wheezing - Cardiovascular Rhythm: regular Heart Sounds: Present: S1 & S2 - Extremities Extremities: no ischemia, No edema - Abdominal General gastrointestinal: soft, non-tender, non-distended, normal bowel sounds - Integumentary Integumentary: Present: clear, warm - Psychiatric Psychiatric: other (confused at times) - Neurologic Neurologic: moves all extremities Results - Labs CBC & Chem 7: 12/21/16 18:46 12/21/16 18:46 Labs: Laboratory Last Values WBC 8.3 K/mm3 (4.5-11.0) 12/21/16 18:46 RBC 3.92 M/mm3 (3.65-5.03) 12/21/16 18:46 Hgb 12.7 gm/dl (11.8-15.2) 12/21/16 18:46 Hct 36.6 % (35.5-45.6) 12/21/16 18:46 MCV 93 fl (84-94) 12/21/16 18:46 MCH 32 pg (28-32) 12/21/16 18:46 MCHC 35 % (32-34) H 12/21/16 18:46 RDW 14.4 % (13.2-15.2) 12/21/16 18:46 Plt Count 272 K/mm3 (140-440) 12/21/16 18:46 Lymph % (Auto) 14.0 % (13.4-35.0) 12/21/16 18:46 [place] % (Auto) 7.7 % (0.0-7.3) H 12/21/16 18:46 Eos % (Auto) 1.6 % (0.0-4.3) 12/21/16 18:46 Baso % (Auto) 0.3 % (0.0-1.8) 12/21/16 18:46 Lymph # 1.2 K/mm3 (1.2-5.4) 12/21/16 18:46 [place] # 0.6 K/mm3 (0.0-0.8) 12/21/16 18:46 Eos # 0.1 K/mm3 (0.0-0.4) 12/21/16 18:46 Baso # 0.0 K/mm3 (0.0-0.1) 12/21/16 18:46 Seg Neutrophils % 76.4 % (40.0-70.0) H 12/21/16 18:46 Seg Neutrophils # 6.3 K/mm3 (1.8-7.7) 12/21/16 18:46 Sodium 139 mmol/L (137-145) 12/21/16 18:46 Potassium 3.8 mmol/L (3.6-5.0) 12/21/16 18:46 Chloride 98.9 mmol/L (98-107) 12/21/16 18:46 Carbon Dioxide 26 mmol/L (22-30) 12/21/16 18:46 Anion Gap 18 mmol/L 12/21/16 18:46 BUN 10 mg/dL (9-20) 12/21/16 18:46 Creatinine 0.7 mg/dL (0.8-1.5) L 12/21/16 18:46 Estimated GFR > 60 ml/min 12/21/16 18:46 BUN/Creatinine Ratio 14.28 % 12/21/16 18:46 Glucose 152 mg/dL (75-100) H 12/21/16 18:46 Calcium 9.1 mg/dL (8.4-10.2) 12/21/16 18:46 Total Bilirubin 0.30 mg/dL (0.1-1.2) 12/21/16 18:46 AST 11 units/L (5-40) 12/21/16 18:46 ALT 11 units/L (7-56) 12/21/16 18:46 Alkaline Phosphatase 109 units/L (35-129) 12/21/16 18:46 Total Creatine Kinase 26 units/L (55-170) L 12/21/16 18:46 CK-MB (CK-2) < 1.0 ng/mL (0.0-4.0) 12/21/16 18:46 CK-MB (CK-2) Rel Index 3.8 (0-4) 12/21/16 18:46 Troponin T < 0.010 ng/mL (0.00-0.029) 12/21/16 18:46 Total Protein 7.0 g/dL (6.3-8.2) 12/21/16 18:46 Albumin 3.8 g/dL (3.9-5) L 12/21/16 18:46 Albumin/Globulin Ratio 1.2 % 12/21/16 18:46 Triglycerides 104 mg/dL (2-149) 12/22/16 04:00 Cholesterol 145 mg/dL (50-199) 12/22/16 04:00 LDL Cholesterol Direct 47 mg/dL (50-130) L 12/22/16 04:00 HDL Cholesterol 78 mg/dL (40-59) H 12/22/16 04:00 Cholesterol/HDL Ratio 1.85 % 12/22/16 04:00 Lipase 31 units/L (13-60) 12/21/16 18:46 Urine Color Yellow (Yellow) 12/21/16 19:09 Urine Turbidity Clear (Clear) 12/21/16 19:09 Urine pH 6.0 (5.0-7.0) 12/21/16 19:09 Ur Specific [place] 1.010 (1.003-1.030) 12/21/16 19:09 Urine Protein <15 mg/dl mg/dL (Negative) 12/21/16 19:09 Urine Glucose (UA) Neg mg/dL (Negative) 12/21/16 19:09 Urine Ketones Neg mg/dL (Negative) 12/21/16 19:09 Urine Blood Neg (Negative) 12/21/16 19:09 Urine Nitrite Neg (Negative) 12/21/16 19:09 Urine Bilirubin Neg (Negative) 12/21/16 19:09 Urine Urobilinogen < 2.0 mg/dL (<2.0) 12/21/16 19:09 Ur Leukocyte Esterase Neg (Negative) 12/21/16 19:09 Urine WBC (Auto) < 1.0 /HPF (0.0-6.0) 12/21/16 19:09 Urine RBC (Auto) 1.0 /HPF (0.0-6.0) 12/21/16 19:09 U Epithel Cells (Auto) < 1.0 /HPF (0-13.0) 12/21/16 19:09 Phenytoin 6.1 mg/L (10.0-20.0) L 12/21/16 18:54
[2016-12-23] MEDS: DILANTIN PO SCH (22:29)
[2016-12-23] MEDS: ZOCOR PO SCH (22:30)
[2016-12-24 05:45] LABS: Basophils % (Auto) 0.4 % (0.0-1.8); Eosinophils % (Auto) 1.3 % (0.0-4.3); Hematocrit 37.6 % (35.5-45.6); Hemoglobin 13.1 gm/dl (11.8-15.2); Mean Corpuscular HGB Conc 35 % (32-34); Mean Corpuscular Hemoglobin 32 pg (28-32); Mean Corpuscular Volume 91 fl (84-94); Platelet Count 294 K/mm3 (140-440); Red Blood Count 4.13 M/mm3 (3.65-5.03); Red Cell Distribution Width 14.4 % (13.2-15.2); White Blood Count 8.1 K/mm3 (4.5-11.0)
[2016-12-24 06:16] LABS: Anion Gap 15 mmol/L; BUN/Creatinine Ratio 12.85; Blood Urea Nitrogen 9 mg/dL (9-20); Calcium 8.6 mg/dL (8.4-10.2); Carbon Dioxide 27 mmol/L (22-30); Chloride 100.3 mmol/L (98-107); Glucose 103 mg/dL (75-100); Potassium 3.6 mmol/L (3.6-5.0); Sodium 139 mmol/L (137-145)
[2016-12-24] MEDS: KEPPRA PO SCH ×2 (10:15→22:13)
[2016-12-24] MEDS: NEURONTIN PO SCH ×4 (10:15→22:13)
[2016-12-24] MEDS: LOVENOX SUB-Q SCH (10:16)
[2016-12-24] MEDS: INDERAL LA PO SCH (10:16)
[2016-12-24] MEDS: FLOMAX PO SCH (10:16)
[2016-12-24] MEDS: ASPIRIN PO SCH (10:16)
[2016-12-24] MEDS: FOLVITE PO SCH (10:16)
--- NOTE | 2016-12-24 16:53 | Progress Note ---
Assessment and Plan Assessment and plan: --Neurological symptoms/Possible CVA CT head edema brain ,not candidate for TPA MRI findings reviewed, neurologist discussed the findings with the patient and the daughter Advised MRI with gadolinium. Continue supportive care --Metabolic encephalopathy; multifactorial Underlying dementia, brain edema, workup is in progress --anxiety; resume his home medications Supportive care --GERD; continue Protonix --History of seizure; seizure precautions, continue antiepileptics medications --Full CODE STATUS --DVT prophylaxis with Lovenox Physical therapy occupational therapy rehabilitation Neurology evaluation and recommendations noted and appreciated --DC planning. Case management Follow pending studies Patient's condition assessment and plan reviewed with the patient's daughter Also discussed with the nurse and case management History Interval history: Patient seen and evaluated No new complaints, daughter is at the bedside MRI findings reviewed Hospitalist Physical - Constitutional Vitals: Temp Pulse Resp BP Pulse Ox 98.0 F 85 20 110/60 99 12/24/16 13:10 12/24/16 13:10 12/24/16 13:10 12/24/16 13:10 12/24/16 13:10 General appearance: Present: no acute distress, well-nourished, other (confused at times) - EENT Eyes: Present: PERRL, EOM intact - Neck Neck: Present: supple, normal ROM - Respiratory Respiratory effort: normal Respiratory: negative: rales, rhonchi, wheezing - Cardiovascular Rhythm: regular Heart Sounds: Present: S1 & S2 - Extremities Extremities: no ischemia, No edema - Abdominal General gastrointestinal: soft, non-tender, non-distended, normal bowel sounds - Integumentary Integumentary: Present: clear, warm - Psychiatric Psychiatric: appropriate mood/affect, cooperative - Neurologic Neurologic: moves all extremities, other Results - Labs CBC & Chem 7: 12/24/16 05:27 12/24/16 05:27 Labs: Laboratory Last Values WBC 8.1 K/mm3 (4.5-11.0) 12/24/16 05:27 RBC 4.13 M/mm3 (3.65-5.03) 12/24/16 05:27 Hgb 13.1 gm/dl (11.8-15.2) 12/24/16 05:27 Hct 37.6 % (35.5-45.6) 12/24/16 05:27 MCV 91 fl (84-94) 12/24/16 05:27 MCH 32 pg (28-32) 12/24/16 05:27 MCHC 35 % (32-34) H 12/24/16 05:27 RDW 14.4 % (13.2-15.2) 12/24/16 05:27 Plt Count 294 K/mm3 (140-440) 12/24/16 05:27 Lymph % (Auto) 19.1 % (13.4-35.0) 12/24/16 05:27 [place] % (Auto) 12.3 % (0.0-7.3) H 12/24/16 05:27 Eos % (Auto) 1.3 % (0.0-4.3) 12/24/16 05:27 Baso % (Auto) 0.4 % (0.0-1.8) 12/24/16 05:27 Lymph # 1.5 K/mm3 (1.2-5.4) 12/24/16 05:27 [place] # 1.0 K/mm3 (0.0-0.8) H 12/24/16 05:27 Eos # 0.1 K/mm3 (0.0-0.4) 12/24/16 05:27 Baso # 0.0 K/mm3 (0.0-0.1) 12/24/16 05:27 Seg Neutrophils % 66.9 % (40.0-70.0) 12/24/16 05:27 Seg Neutrophils # 5.4 K/mm3 (1.8-7.7) 12/24/16 05:27 Sodium 139 mmol/L (137-145) 12/21/16 18:46 Potassium 3.8 mmol/L (3.6-5.0) 12/21/16 18:46 Chloride 98.9 mmol/L (98-107) 12/21/16 18:46 Carbon Dioxide 27 mmol/L (22-30) 12/24/16 05:27 Anion Gap 18 mmol/L 12/21/16 18:46 BUN 9 mg/dL (9-20) 12/24/16 05:27 Creatinine 0.7 mg/dL (0.8-1.5) L 12/24/16 05:27 Estimated GFR > 60 ml/min 12/24/16 05:27 BUN/Creatinine Ratio 12.85 % 12/24/16 05:27 Glucose 103 mg/dL (75-100) H 12/24/16 05:27 Calcium 8.6 mg/dL (8.4-10.2) 12/24/16 05:27 Total Bilirubin 0.30 mg/dL (0.1-1.2) 12/21/16 18:46 AST 11 units/L (5-40) 12/21/16 18:46 ALT 11 units/L (7-56) 12/21/16 18:46 Alkaline Phosphatase 109 units/L (35-129) 12/21/16 18:46 Total Creatine Kinase 26 units/L (55-170) L 12/21/16 18:46 CK-MB (CK-2) < 1.0 ng/mL (0.0-4.0) 12/21/16 18:46 CK-MB (CK-2) Rel Index 3.8 (0-4) 12/21/16 18:46 Troponin T < 0.010 ng/mL (0.00-0.029) 12/21/16 18:46 Total Protein 7.0 g/dL (6.3-8.2) 12/21/16 18:46 Albumin 3.8 g/dL (3.9-5) L 12/21/16 18:46 Albumin/Globulin Ratio 1.2 % 12/21/16 18:46 Triglycerides 104 mg/dL (2-149) 12/22/16 04:00 Cholesterol 145 mg/dL (50-199) 12/22/16 04:00 LDL Cholesterol Direct 47 mg/dL (50-130) L 12/22/16 04:00 HDL Cholesterol 78 mg/dL (40-59) H 12/22/16 04:00 Cholesterol/HDL Ratio 1.85 % 12/22/16 04:00 Lipase 31 units/L (13-60) 12/21/16 18:46 Urine Color Yellow (Yellow) 12/21/16 19:09 Urine Turbidity Clear (Clear) 12/21/16 19:09 Urine pH 6.0 (5.0-7.0) 12/21/16 19:09 Ur Specific [place] 1.010 (1.003-1.030) 12/21/16 19:09 Urine Protein <15 mg/dl mg/dL (Negative) 12/21/16 19:09 Urine Glucose (UA) Neg mg/dL (Negative) 12/21/16 19:09 Urine Ketones Neg mg/dL (Negative) 12/21/16 19:09 Urine Blood Neg (Negative) 12/21/16 19:09 Urine Nitrite Neg (Negative) 12/21/16 19:09 Urine Bilirubin Neg (Negative) 12/21/16 19:09 Urine Urobilinogen < 2.0 mg/dL (<2.0) 12/21/16 19:09 Ur Leukocyte Esterase Neg (Negative) 12/21/16 19:09 Urine WBC (Auto) < 1.0 /HPF (0.0-6.0) 12/21/16 19:09 Urine RBC (Auto) 1.0 /HPF (0.0-6.0) 12/21/16 19:09 U Epithel Cells (Auto) < 1.0 /HPF (0-13.0) 12/21/16 19:09 Phenytoin 6.1 mg/L (10.0-20.0) L 12/21/16 18:54
[2016-12-24] MEDS: DILANTIN PO SCH (22:13)
[2016-12-24] MEDS: ZOCOR PO SCH (22:13)
--- NOTE | 2016-12-25 10:27 | Progress Note ---
Assessment and Plan Assessment and plan: --Neurological symptoms/Possible CVA CT head edema brain ,not candidate for TPA --Abnormal MRI reviewed, neurologist discussed the findings with the patient and the daughter Advised MRI with gadolinium. Continue supportive care --Metabolic encephalopathy; multifactorial Underlying dementia, brain edema, workup is in progress --anxiety; resume his home medications Supportive care --GERD; continue Protonix --History of seizure; seizure precautions, continue antiepileptics medications --Full CODE STATUS --DVT prophylaxis with Lovenox Physical therapy occupational therapy rehabilitation Neurology evaluation and recommendations noted and appreciated --DC planning. Case management Follow pending studies Patient's condition assessment and plan reviewed with the patient's daughter, the nurse and case management History Interval history: Patient seen and evaluated, no new events reported by the nursing staff Patient feels better, concerned about his MRI findings Hospitalist Physical - Constitutional Vitals: Temp Pulse Resp BP Pulse Ox 98.6 F 69 20 116/62 96 12/25/16 07:40 12/25/16 07:40 12/25/16 07:40 12/25/16 07:40 12/25/16 04:00 General appearance: Present: no acute distress, well-nourished, other (confused at times) - EENT Eyes: Present: PERRL, EOM intact - Neck Neck: Present: supple, normal ROM - Respiratory Respiratory effort: normal Respiratory: bilateral: diminished, negative: rales, rhonchi, wheezing - Cardiovascular Rhythm: regular Heart Sounds: Present: S1 & S2 - Extremities Extremities: no ischemia, No edema - Abdominal General gastrointestinal: soft, non-tender, non-distended, normal bowel sounds - Integumentary Integumentary: Present: clear, warm - Psychiatric Psychiatric: appropriate mood/affect, cooperative - Neurologic Neurologic: CNII-XII intact, moves all extremities Results - Labs CBC & Chem 7: 12/24/16 05:27 12/24/16 05:27 Labs: Laboratory Last Values WBC 8.1 K/mm3 (4.5-11.0) 12/24/16 05:27 RBC 4.13 M/mm3 (3.65-5.03) 12/24/16 05:27 Hgb 13.1 gm/dl (11.8-15.2) 12/24/16 05:27 Hct 37.6 % (35.5-45.6) 12/24/16 05:27 MCV 91 fl (84-94) 12/24/16 05:27 MCH 32 pg (28-32) 12/24/16 05:27 MCHC 35 % (32-34) H 12/24/16 05:27 RDW 14.4 % (13.2-15.2) 12/24/16 05:27 Plt Count 294 K/mm3 (140-440) 12/24/16 05:27 Lymph % (Auto) 19.1 % (13.4-35.0) 12/24/16 05:27 [place] % (Auto) 12.3 % (0.0-7.3) H 12/24/16 05:27 Eos % (Auto) 1.3 % (0.0-4.3) 12/24/16 05:27 Baso % (Auto) 0.4 % (0.0-1.8) 12/24/16 05:27 Lymph # 1.5 K/mm3 (1.2-5.4) 12/24/16 05:27 [place] # 1.0 K/mm3 (0.0-0.8) H 12/24/16 05:27 Eos # 0.1 K/mm3 (0.0-0.4) 12/24/16 05:27 Baso # 0.0 K/mm3 (0.0-0.1) 12/24/16 05:27 Seg Neutrophils % 66.9 % (40.0-70.0) 12/24/16 05:27 Seg Neutrophils # 5.4 K/mm3 (1.8-7.7) 12/24/16 05:27 Sodium 139 mmol/L (137-145) 12/21/16 18:46 Potassium 3.8 mmol/L (3.6-5.0) 12/21/16 18:46 Chloride 98.9 mmol/L (98-107) 12/21/16 18:46 Carbon Dioxide 27 mmol/L (22-30) 12/24/16 05:27 Anion Gap 18 mmol/L 12/21/16 18:46 BUN 9 mg/dL (9-20) 12/24/16 05:27 Creatinine 0.7 mg/dL (0.8-1.5) L 12/24/16 05:27 Estimated GFR > 60 ml/min 12/24/16 05:27 BUN/Creatinine Ratio 12.85 % 12/24/16 05:27 Glucose 103 mg/dL (75-100) H 12/24/16 05:27 Calcium 8.6 mg/dL (8.4-10.2) 12/24/16 05:27 Total Bilirubin 0.30 mg/dL (0.1-1.2) 12/21/16 18:46 AST 11 units/L (5-40) 12/21/16 18:46 ALT 11 units/L (7-56) 12/21/16 18:46 Alkaline Phosphatase 109 units/L (35-129) 12/21/16 18:46 Total Creatine Kinase 26 units/L (55-170) L 12/21/16 18:46 CK-MB (CK-2) < 1.0 ng/mL (0.0-4.0) 12/21/16 18:46 CK-MB (CK-2) Rel Index 3.8 (0-4) 12/21/16 18:46 Troponin T < 0.010 ng/mL (0.00-0.029) 12/21/16 18:46 Total Protein 7.0 g/dL (6.3-8.2) 12/21/16 18:46 Albumin 3.8 g/dL (3.9-5) L 12/21/16 18:46 Albumin/Globulin Ratio 1.2 % 12/21/16 18:46 Triglycerides 104 mg/dL (2-149) 12/22/16 04:00 Cholesterol 145 mg/dL (50-199) 12/22/16 04:00 LDL Cholesterol Direct 47 mg/dL (50-130) L 12/22/16 04:00 HDL Cholesterol 78 mg/dL (40-59) H 12/22/16 04:00 Cholesterol/HDL Ratio 1.85 % 12/22/16 04:00 Lipase 31 units/L (13-60) 12/21/16 18:46 Urine Color Yellow (Yellow) 12/21/16 19:09 Urine Turbidity Clear (Clear) 12/21/16 19:09 Urine pH 6.0 (5.0-7.0) 12/21/16 19:09 Ur Specific [employer] 1.010 (1.003-1.030) 12/21/16 19:09 Urine Protein <15 mg/dl mg/dL (Negative) 12/21/16 19:09 Urine Glucose (UA) Neg mg/dL (Negative) 12/21/16 19:09 Urine Ketones Neg mg/dL (Negative) 12/21/16 19:09 Urine Blood Neg (Negative) 12/21/16 19:09 Urine Nitrite Neg (Negative) 12/21/16 19:09 Urine Bilirubin Neg (Negative) 12/21/16 19:09 Urine Urobilinogen < 2.0 mg/dL (<2.0) 12/21/16 19:09 Ur Leukocyte Esterase Neg (Negative) 12/21/16 19:09 Urine WBC (Auto) < 1.0 /HPF (0.0-6.0) 12/21/16 19:09 Urine RBC (Auto) 1.0 /HPF (0.0-6.0) 12/21/16 19:09 U Epithel Cells (Auto) < 1.0 /HPF (0-13.0) 12/21/16 19:09 Phenytoin 6.1 mg/L (10.0-20.0) L 12/21/16 18:54
[2016-12-25] MEDS: FLOMAX PO SCH (10:44)
[2016-12-25] MEDS: INDERAL LA PO SCH (10:44)
[2016-12-25] MEDS: KEPPRA PO SCH ×2 (10:44→22:27)
[2016-12-25] MEDS: ASPIRIN PO SCH (10:44)
[2016-12-25] MEDS: NEURONTIN PO SCH ×2 (10:45→22:28)
[2016-12-25] MEDS: FOLVITE PO SCH (10:45)
[2016-12-25] MEDS: LOVENOX SUB-Q SCH (10:45)
[2016-12-25] MEDS ORDERED: ATIVAN IV NR (11:15)
[2016-12-25] MEDS: DILANTIN PO SCH (22:27)
[2016-12-25] MEDS: AMBIEN PO PRN (22:28)
[2016-12-25] MEDS: ZOCOR PO SCH (22:28)
[2016-12-26] MEDS ORDERED: ATIVAN IV NR (09:00)
--- NOTE | 2016-12-26 10:40 | Magnetic Resonance Report ---
MRI scan of the brain with IV contrast: Comparison made with previous study dated 12/23/16. History: Rule out mass. Findings: Ventricles are midline in location and mildly dilated. There is large irregular enhancing mass measuring approximately 5.6 x 4.5 x 6.6 cm cm noted in the left occipital lobe extending to and involving the splenium of corpus callosum on ipsilateral and contralateral side. Enhancement is predominantly peripherally. No significant edema noted around the mass. There is focal 5 mm enhancing mass noted at the left frontoparietal lobe adjacent to the interhemispheric fissure. No extra-axial fluid collection. Normal brainstem and cerebellum. Opacified right maxillary sinus. 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 Dilated ventricles probably an incidental finding. Sinus disease.
--- NOTE | 2016-12-26 11:00 | Consultation ---
History of Present Illness - Reason for Consult Consult date: 12/26/16 mass lesion - History of Present Illness I have reviewed the updated contrast MRI and this is confirmed to be enhancing mass lesion and maybe another now frontal lersion I want to review films personally to assess and will speak to daughter Medications and Allergies Allergies Allergy/AdvReac Type Severity Reaction Status Date / Time Unable to Assess Allergy Unverified 12/21/16 18:37 Home Medications Medication Instructions Recorded Confirmed Last Taken Type Alendronate Sodium [Fosamax] 70 mg PO QWEEK 12/22/16 12/22/16 Unknown History Cyanocobalamin (Vitamin B-12) 1,000 mcg IJ QMONTH 12/22/16 12/22/16 Unknown History [B-12 Kit] Dutasteride [Avodart] 0.5 mg PO DAILY 12/22/16 12/22/16 Unknown History Folic Acid [Folvite] 1 mg PO QDAY 12/22/16 12/22/16 Unknown History Gabapentin [Neurontin] 300 mg PO QID 12/22/16 12/22/16 Unknown History Ibuprofen [Motrin] 400 mg PO TID PRN 12/22/16 12/22/16 Unknown History Omeprazole 40 mg PO DAILY 12/22/16 12/22/16 Unknown History Phenytoin [Dilantin] 300 mg PO QHS 12/22/16 12/22/16 Unknown History Propranolol HCl [Propranolol HCl 60 mg PO DAILY 12/22/16 12/22/16 Unknown History ER] Simvastatin [Zocor TAB] 20 mg PO QHS 12/22/16 12/22/16 Unknown History Tamsulosin [Flomax] 0.4 mg PO QDAY 12/22/16 12/22/16 Unknown History diphenhydrAMINE [Benadryl CAP] 50 mg PO DAILY 12/22/16 12/22/16 Unknown History lamoTRIgine [LaMICtal Xr] 200 mg PO QDAY 12/22/16 12/22/16 Unknown History levETIRAcetam [Keppra TAB] 750 mg PO BID 12/22/16 12/22/16 Unknown History Active Meds: Active Medications Acetaminophen (Tylenol) 650 mg PO Q4H PRN PRN Reason: Pain, Mild (1-3) Aspirin (Aspirin) 325 mg PO QDAY [facility] Last Admin: 12/25/16 10:44 Dose: 325 mg Bisacodyl (Dulcolax) 10 mg NE QDAY PRN PRN Reason: Constipation Enoxaparin Sodium (Lovenox) 40 mg SUB-Q QDAY@1000 [facility] Last Admin: 12/25/16 10:45 Dose: 40 mg Folic Acid (Folvite) 1 mg PO QDAY [facility] Last Admin: 12/25/16 10:45 Dose: 1 mg Gabapentin (Neurontin) 300 mg PO QID [facility] Last Admin: 12/25/16 22:28 Dose: 300 mg Levetiracetam (Keppra) 1,000 mg PO BID [facility] Last Admin: 12/25/16 22:27 Dose: 1,000 mg Lorazepam (Ativan) 2 mg IV [employer] NR Stop: 12/26/16 14:00 Last Admin: 12/26/16 09:21 Dose: 2 mg Magnesium Hydroxide (Milk Of Magnesia) 30 ml PO Q4H PRN PRN Reason: Constipation Miscellaneous Medication (Dutasteride [Avodart]) 0.5 mg PO DAILY [facility] Miscellaneous Medication (Lamotrigine [Lamictal Xr]) 200 mg PO QDAY [facility] Ondansetron HCl (Zofran) 4 mg IV Q8H PRN PRN Reason: N/V unrelieved by Reglan Phenytoin (Dilantin) 300 mg PO QHS [facility] Last Admin: 12/25/16 22:27 Dose: 300 mg Propranolol HCl (Inderal La) 60 mg PO DAILY [facility] Last Admin: 12/25/16 10:44 Dose: 60 mg Simvastatin (Zocor) 20 mg PO QHS [facility] Last Admin: 12/25/16 22:28 Dose: 20 mg Sodium Chloride (Sodium Chloride Flush Syringe 10 Ml) 10 ml IV PRN PRN PRN Reason: LINE FLUSH Tamsulosin HCl (Flomax) 0.4 mg PO QDAY [facility] Last Admin: 12/25/16 10:44 Dose: 0.4 mg Zolpidem Tartrate (Ambien) 5 mg PO QHS PRN PRN Reason: Sleep Last Admin: 12/25/16 22:28 Dose: 5 mg Exam - Constitutional Vitals: Temp Pulse Resp BP Pulse Ox 98.2 F 71 20 106/55 99 12/26/16 08:00 12/26/16 08:00 12/26/16 08:00 12/26/16 08:00 12/26/16 08:00 Results - Labs CBC & Chem 7: 12/24/16 05:27 12/24/16 05:27
[2016-12-26] MEDS: NEURONTIN PO SCH ×4 (17:28→21:20)
[2016-12-26] MEDS: FOLVITE PO SCH (17:29)
[2016-12-26] MEDS: ASPIRIN PO SCH (17:29)
[2016-12-26] MEDS: KEPPRA PO SCH ×2 (17:29→21:19)
[2016-12-26] MEDS: FLOMAX PO SCH (17:30)
[2016-12-26] MEDS: LOVENOX SUB-Q SCH (17:30)
--- NOTE | 2016-12-26 18:14 | Progress Note ---
Assessment and Plan Assessment and plan: --Brain tumor on MRI with contrast MRI brain with contrast;; findings consistent with tumor probably glioblastoma multiform Neurology will discuss with the patient and the family members Management per neurology --Neurological symptoms/Possible CVA CT head edema brain ,not candidate for TPA --Metabolic encephalopathy; multifactorial Underlying dementia, brain edema, workup is in progress --anxiety; resume his home medications Supportive care --GERD; continue Protonix --History of seizure; seizure precautions, continue antiepileptics medications --Full CODE STATUS --DVT prophylaxis with Lovenox Physical therapy occupational therapy rehabilitation Neurology evaluation and recommendations noted and appreciated --DC planning. Case management History Interval history: Patient seen and evaluated in his room this morning medical records reviewed Patient underwent MRI brain with contrast Findings reviewed and discussed with neurologist Dr. Villarreal Patient complains of mild headache and some visual disturbances Hospitalist Physical - Constitutional Vitals: Temp Pulse Resp BP Pulse Ox 98.5 F 73 20 117/59 98 12/26/16 17:56 12/26/16 17:56 12/26/16 17:56 12/26/16 17:56 12/26/16 17:56 General appearance: Present: no acute distress, well-nourished, other (confused at times) - EENT Eyes: Present: PERRL, EOM intact - Neck Neck: Present: supple, normal ROM - Respiratory Respiratory effort: normal Respiratory: negative: rales, rhonchi, wheezing - Cardiovascular Rhythm: regular Heart Sounds: Present: S1 & S2 - Extremities Extremities: no ischemia, pulses intact, pulses symmetrical Peripheral Pulses: within normal limits - Abdominal General gastrointestinal: soft, non-tender, non-distended, normal bowel sounds - Integumentary Integumentary: Present: clear, warm - Psychiatric Psychiatric: appropriate mood/affect, cooperative - Neurologic Neurologic: CNII-XII intact, moves all extremities Results - Labs CBC & Chem 7: 12/24/16 05:27 12/24/16 05:27 Labs: Laboratory Last Values WBC 8.1 K/mm3 (4.5-11.0) 12/24/16 05:27 RBC 4.13 M/mm3 (3.65-5.03) 12/24/16 05:27 Hgb 13.1 gm/dl (11.8-15.2) 12/24/16 05:27 Hct 37.6 % (35.5-45.6) 12/24/16 05:27 MCV 91 fl (84-94) 12/24/16 05:27 MCH 32 pg (28-32) 12/24/16 05:27 MCHC 35 % (32-34) H 12/24/16 05:27 RDW 14.4 % (13.2-15.2) 12/24/16 05:27 Plt Count 294 K/mm3 (140-440) 12/24/16 05:27 Lymph % (Auto) 19.1 % (13.4-35.0) 12/24/16 05:27 [place] % (Auto) 12.3 % (0.0-7.3) H 12/24/16 05:27 Eos % (Auto) 1.3 % (0.0-4.3) 12/24/16 05:27 Baso % (Auto) 0.4 % (0.0-1.8) 12/24/16 05:27 Lymph # 1.5 K/mm3 (1.2-5.4) 12/24/16 05:27 [place] # 1.0 K/mm3 (0.0-0.8) H 12/24/16 05:27 Eos # 0.1 K/mm3 (0.0-0.4) 12/24/16 05:27 Baso # 0.0 K/mm3 (0.0-0.1) 12/24/16 05:27 Seg Neutrophils % 66.9 % (40.0-70.0) 12/24/16 05:27 Seg Neutrophils # 5.4 K/mm3 (1.8-7.7) 12/24/16 05:27 Sodium 139 mmol/L (137-145) 12/21/16 18:46 Potassium 3.8 mmol/L (3.6-5.0) 12/21/16 18:46 Chloride 98.9 mmol/L (98-107) 12/21/16 18:46 Carbon Dioxide 27 mmol/L (22-30) 12/24/16 05:27 Anion Gap 18 mmol/L 12/21/16 18:46 BUN 9 mg/dL (9-20) 12/24/16 05:27 Creatinine 0.7 mg/dL (0.8-1.5) L 12/24/16 05:27 Estimated GFR > 60 ml/min 12/24/16 05:27 BUN/Creatinine Ratio 12.85 % 12/24/16 05:27 Glucose 103 mg/dL (75-100) H 12/24/16 05:27 Calcium 8.6 mg/dL (8.4-10.2) 12/24/16 05:27 Total Bilirubin 0.30 mg/dL (0.1-1.2) 12/21/16 18:46 AST 11 units/L (5-40) 12/21/16 18:46 ALT 11 units/L (7-56) 12/21/16 18:46 Alkaline Phosphatase 109 units/L (35-129) 12/21/16 18:46 Total Creatine Kinase 26 units/L (55-170) L 12/21/16 18:46 CK-MB (CK-2) < 1.0 ng/mL (0.0-4.0) 12/21/16 18:46 CK-MB (CK-2) Rel Index 3.8 (0-4) 12/21/16 18:46 Troponin T < 0.010 ng/mL (0.00-0.029) 12/21/16 18:46 Total Protein 7.0 g/dL (6.3-8.2) 12/21/16 18:46 Albumin 3.8 g/dL (3.9-5) L 12/21/16 18:46 Albumin/Globulin Ratio 1.2 % 12/21/16 18:46 Triglycerides 104 mg/dL (2-149) 12/22/16 04:00 Cholesterol 145 mg/dL (50-199) 12/22/16 04:00 LDL Cholesterol Direct 47 mg/dL (50-130) L 12/22/16 04:00 HDL Cholesterol 78 mg/dL (40-59) H 12/22/16 04:00 Cholesterol/HDL Ratio 1.85 % 12/22/16 04:00 Lipase 31 units/L (13-60) 12/21/16 18:46 Urine Color Yellow (Yellow) 12/21/16 19:09 Urine Turbidity Clear (Clear) 12/21/16 19:09 Urine pH 6.0 (5.0-7.0) 12/21/16 19:09 Ur Specific [place] 1.010 (1.003-1.030) 12/21/16 19:09 Urine Protein <15 mg/dl mg/dL (Negative) 12/21/16 19:09 Urine Glucose (UA) Neg mg/dL (Negative) 12/21/16 19:09 Urine Ketones Neg mg/dL (Negative) 12/21/16 19:09 Urine Blood Neg (Negative) 12/21/16 19:09 Urine Nitrite Neg (Negative) 12/21/16 19:09 Urine Bilirubin Neg (Negative) 12/21/16 19:09 Urine Urobilinogen < 2.0 mg/dL (<2.0) 12/21/16 19:09 Ur Leukocyte Esterase Neg (Negative) 12/21/16 19:09 Urine WBC (Auto) < 1.0 /HPF (0.0-6.0) 12/21/16 19:09 Urine RBC (Auto) 1.0 /HPF (0.0-6.0) 12/21/16 19:09 U Epithel Cells (Auto) < 1.0 /HPF (0-13.0) 12/21/16 19:09 Phenytoin 6.1 mg/L (10.0-20.0) L 12/21/16 18:54
[2016-12-26] MEDS: INDERAL LA PO SCH (19:39)
[2016-12-26] MEDS: PERCOCET 5/325 PO PRN (20:12)
[2016-12-26] MEDS ORDERED: MORPHINE IV PRN (20:25)
[2016-12-26] MEDS: ZOCOR PO SCH (21:20)
[2016-12-26] MEDS: DILANTIN PO SCH (21:20)
[2016-12-27] MEDS: NEURONTIN PO SCH ×4 (10:33→22:08)
[2016-12-27] MEDS: INDERAL LA PO SCH (10:33)
[2016-12-27] MEDS: FLOMAX PO SCH (10:33)
[2016-12-27] MEDS: FOLVITE PO SCH (10:33)
[2016-12-27] MEDS: KEPPRA PO SCH ×2 (10:33→22:09)
[2016-12-27] MEDS: ASPIRIN PO SCH (10:33)
[2016-12-27] MEDS: LOVENOX SUB-Q SCH (10:34)
[2016-12-27] MEDS: MILK OF MAGNESIA PO PRN (12:06)
[2016-12-27] MEDS: DECADRON IV SCH ×2 (12:06→19:06)
--- NOTE | 2016-12-27 15:55 | Progress Note ---
Assessment and Plan Assessment and plan: --Brain tumor on MRI with contrast MRI brain with contrast;; findings consistent with tumor probably glioblastoma multiform Neurology following. IV steroids. Supportive care. Possible transfer to [facility] on Thursday Neurology discussed with the patient and his daughter, they verbalized understanding --Neurological symptoms secondary to brain tumor/supportive care Steroids, antiepileptics, seizure precautions --Metabolic encephalopathy; multifactorial Underlying dementia, brain edema, workup is in progress --anxiety; resume his home medications Supportive care --GERD; continue Protonix --History of seizure; seizure precautions, continue antiepileptics medications --Full CODE STATUS --DVT prophylaxis with Lovenox Physical therapy occupational therapy rehabilitation Possible transfer to [facility] by neurology for neurosurgical evaluation --DC planning. Case management History Interval history: Patient seen and evaluated medical records reviewed, no new events reported by the nursing staff Patient complains of mild headache intermittent No episodes of seizure Hospitalist Physical - Constitutional Vitals: Temp Pulse Resp BP Pulse Ox 98.4 F 70 20 124/60 94 12/27/16 12:00 12/27/16 12:00 12/27/16 12:00 12/27/16 12:00 12/27/16 12:00 General appearance: Present: no acute distress, well-nourished, other (confused at times) - EENT Eyes: Present: PERRL, EOM intact - Neck Neck: Present: supple, normal ROM - Respiratory Respiratory effort: normal Respiratory: bilateral: diminished, negative: rales, rhonchi, wheezing - Cardiovascular Rhythm: regular Heart Sounds: Present: S1 & S2 - Extremities Extremities: no ischemia, No edema - Abdominal General gastrointestinal: soft, non-tender, non-distended, normal bowel sounds - Integumentary Integumentary: Present: clear, warm - Psychiatric Psychiatric: appropriate mood/affect, cooperative - Neurologic Neurologic: CNII-XII intact, moves all extremities Results - Labs CBC & Chem 7: 12/24/16 05:27 12/24/16 05:27 Labs: Laboratory Last Values WBC 8.1 K/mm3 (4.5-11.0) 12/24/16 05:27 RBC 4.13 M/mm3 (3.65-5.03) 12/24/16 05:27 Hgb 13.1 gm/dl (11.8-15.2) 12/24/16 05:27 Hct 37.6 % (35.5-45.6) 12/24/16 05:27 MCV 91 fl (84-94) 12/24/16 05:27 MCH 32 pg (28-32) 12/24/16 05:27 MCHC 35 % (32-34) H 12/24/16 05:27 RDW 14.4 % (13.2-15.2) 12/24/16 05:27 Plt Count 294 K/mm3 (140-440) 12/24/16 05:27 Lymph % (Auto) 19.1 % (13.4-35.0) 12/24/16 05:27 [place] % (Auto) 12.3 % (0.0-7.3) H 12/24/16 05:27 Eos % (Auto) 1.3 % (0.0-4.3) 12/24/16 05:27 Baso % (Auto) 0.4 % (0.0-1.8) 12/24/16 05:27 Lymph # 1.5 K/mm3 (1.2-5.4) 12/24/16 05:27 [place] # 1.0 K/mm3 (0.0-0.8) H 12/24/16 05:27 Eos # 0.1 K/mm3 (0.0-0.4) 12/24/16 05:27 Baso # 0.0 K/mm3 (0.0-0.1) 12/24/16 05:27 Seg Neutrophils % 66.9 % (40.0-70.0) 12/24/16 05:27 Seg Neutrophils # 5.4 K/mm3 (1.8-7.7) 12/24/16 05:27 Sodium 139 mmol/L (137-145) 12/21/16 18:46 Potassium 3.8 mmol/L (3.6-5.0) 12/21/16 18:46 Chloride 98.9 mmol/L (98-107) 12/21/16 18:46 Carbon Dioxide 27 mmol/L (22-30) 12/24/16 05:27 Anion Gap 18 mmol/L 12/21/16 18:46 BUN 9 mg/dL (9-20) 12/24/16 05:27 Creatinine 0.7 mg/dL (0.8-1.5) L 12/24/16 05:27 Estimated GFR > 60 ml/min 12/24/16 05:27 BUN/Creatinine Ratio 12.85 % 12/24/16 05:27 Glucose 103 mg/dL (75-100) H 12/24/16 05:27 POC Glucose 88 (70-105) 12/26/16 21:28 Calcium 8.6 mg/dL (8.4-10.2) 12/24/16 05:27 Total Bilirubin 0.30 mg/dL (0.1-1.2) 12/21/16 18:46 AST 11 units/L (5-40) 12/21/16 18:46 ALT 11 units/L (7-56) 12/21/16 18:46 Alkaline Phosphatase 109 units/L (35-129) 12/21/16 18:46 Total Creatine Kinase 26 units/L (55-170) L 12/21/16 18:46 CK-MB (CK-2) < 1.0 ng/mL (0.0-4.0) 12/21/16 18:46 CK-MB (CK-2) Rel Index 3.8 (0-4) 12/21/16 18:46 Troponin T < 0.010 ng/mL (0.00-0.029) 12/21/16 18:46 Total Protein 7.0 g/dL (6.3-8.2) 12/21/16 18:46 Albumin 3.8 g/dL (3.9-5) L 12/21/16 18:46 Albumin/Globulin Ratio 1.2 % 12/21/16 18:46 Triglycerides 104 mg/dL (2-149) 12/22/16 04:00 Cholesterol 145 mg/dL (50-199) 12/22/16 04:00 LDL Cholesterol Direct 47 mg/dL (50-130) L 12/22/16 04:00 HDL Cholesterol 78 mg/dL (40-59) H 12/22/16 04:00 Cholesterol/HDL Ratio 1.85 % 12/22/16 04:00 Lipase 31 units/L (13-60) 12/21/16 18:46 Urine Color Yellow (Yellow) 12/21/16 19:09 Urine Turbidity Clear (Clear) 12/21/16 19:09 Urine pH 6.0 (5.0-7.0) 12/21/16 19:09 Ur Specific [place] 1.010 (1.003-1.030) 12/21/16 19:09 Urine Protein <15 mg/dl mg/dL (Negative) 12/21/16 19:09 Urine Glucose (UA) Neg mg/dL (Negative) 12/21/16 19:09 Urine Ketones Neg mg/dL (Negative) 12/21/16 19:09 Urine Blood Neg (Negative) 12/21/16 19:09 Urine Nitrite Neg (Negative) 12/21/16 19:09 Urine Bilirubin Neg (Negative) 12/21/16 19:09 Urine Urobilinogen < 2.0 mg/dL (<2.0) 12/21/16 19:09 Ur Leukocyte Esterase Neg (Negative) 12/21/16 19:09 Urine WBC (Auto) < 1.0 /HPF (0.0-6.0) 12/21/16 19:09 Urine RBC (Auto) 1.0 /HPF (0.0-6.0) 12/21/16 19:09 U Epithel Cells (Auto) < 1.0 /HPF (0-13.0) 12/21/16 19:09 Phenytoin 6.1 mg/L (10.0-20.0) L 12/21/16 18:54
[2016-12-27] MEDS: LaMICtal PO SCH ×2 (19:06→22:09)
[2016-12-27] MEDS: DILANTIN PO SCH (22:08)
[2016-12-27] MEDS: ZOCOR PO SCH (22:09)
[2016-12-27] MEDS: AMBIEN PO PRN (22:20)
[2016-12-28] MEDS: DECADRON IV SCH ×4 (06:35→17:59)
[2016-12-28] MEDS: MILK OF MAGNESIA PO PRN ×2 (06:37→09:55)
[2016-12-28 09:35] LABS: Basophils % (Auto) 0.1 % (0.0-1.8); Eosinophils % (Auto) 0.1 % (0.0-4.3); Hematocrit 40.8 % (35.5-45.6); Hemoglobin 13.8 gm/dl (11.8-15.2); Mean Corpuscular HGB Conc 34 % (32-34); Mean Corpuscular Hemoglobin 31 pg (28-32); Mean Corpuscular Volume 92 fl (84-94); Platelet Count 328 K/mm3 (140-440); Red Blood Count 4.45 M/mm3 (3.65-5.03); Red Cell Distribution Width 14.2 % (13.2-15.2)
[2016-12-28] MEDS: FOLVITE PO SCH (09:55)
[2016-12-28] MEDS: FLOMAX PO SCH (09:55)
[2016-12-28] MEDS: ASPIRIN PO SCH (09:55)
[2016-12-28] MEDS: INDERAL LA PO SCH (09:55)
[2016-12-28] MEDS: KEPPRA PO SCH ×2 (09:55→21:38)
[2016-12-28] MEDS: LaMICtal PO SCH ×2 (09:55→21:33)
[2016-12-28] MEDS: PERCOCET 5/325 PO PRN (09:56)
[2016-12-28] MEDS: NEURONTIN PO SCH ×4 (09:56→21:33)
[2016-12-28] MEDS: LOVENOX SUB-Q SCH (09:56)
[2016-12-28 10:10] LABS: Alanine Aminotransferase 25 units/L (7-56); Albumin 3.8 g/dL (3.9-5); Alkaline Phosphatase 111 units/L (35-129); Anion Gap 19 mmol/L; BUN/Creatinine Ratio 16.66; Blood Urea Nitrogen 10 mg/dL (9-20); Calcium 8.9 mg/dL (8.4-10.2); Carbon Dioxide 26 mmol/L (22-30); Glucose 184 mg/dL (75-100); Potassium 3.6 mmol/L (3.6-5.0); Sodium 135 mmol/L (137-145); Total Protein 7.5 g/dL (6.3-8.2)
[2016-12-28 10:19] LABS: Bilirubin,Direct < 0.2 mg/dL (0-0.2)
--- NOTE | 2016-12-28 10:53 | Consultation ---
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 Medications and Allergies Allergies Allergy/AdvReac Type Severity Reaction Status Date / Time No Known Allergies Allergy Unverified 12/26/16 20:14 Home Medications Medication Instructions Recorded Confirmed Last Taken Type Alendronate Sodium [Fosamax] 70 mg PO QWEEK 12/22/16 12/22/16 Unknown History Cyanocobalamin (Vitamin B-12) 1,000 mcg IJ QMONTH 12/22/16 12/22/16 Unknown History [B-12 Kit] Dutasteride [Avodart] 0.5 mg PO DAILY 12/22/16 12/22/16 Unknown History Folic Acid [Folvite] 1 mg PO QDAY 12/22/16 12/22/16 Unknown History Gabapentin [Neurontin] 300 mg PO QID 12/22/16 12/22/16 Unknown History Ibuprofen [Motrin] 400 mg PO TID PRN 12/22/16 12/22/16 Unknown History Omeprazole 40 mg PO DAILY 12/22/16 12/22/16 Unknown History Phenytoin [Dilantin] 300 mg PO QHS 12/22/16 12/22/16 Unknown History Propranolol HCl [Propranolol HCl 60 mg PO DAILY 12/22/16 12/22/16 Unknown History ER] Simvastatin [Zocor TAB] 20 mg PO QHS 12/22/16 12/22/16 Unknown History Tamsulosin [Flomax] 0.4 mg PO QDAY 12/22/16 12/22/16 Unknown History diphenhydrAMINE [Benadryl CAP] 50 mg PO DAILY 12/22/16 12/22/16 Unknown History lamoTRIgine [LaMICtal Xr] 200 mg PO QDAY 12/22/16 12/22/16 Unknown History levETIRAcetam [Keppra TAB] 750 mg PO BID 08/07/17 08/07/17 Unknown History Active Meds: Active Medications Acetaminophen (Tylenol) 650 mg PO Q4H PRN PRN Reason: Pain, Mild (1-3) Aspirin (Aspirin) 325 mg PO QDAY [facility] Last Admin: 12/28/16 09:55 Dose: 325 mg Bisacodyl (Dulcolax) 10 mg IA QDAY PRN PRN Reason: Constipation Dexamethasone (Decadron) 4 mg IV Q6HR [facility] Last Admin: 12/28/16 06:35 Dose: 4 mg Enoxaparin Sodium (Lovenox) 40 mg SUB-Q QDAY@1000 [facility] Last Admin: 12/28/16 09:56 Dose: 40 mg Folic Acid (Folvite) 1 mg PO QDAY [facility] Last Admin: 12/28/16 09:55 Dose: 1 mg Gabapentin (Neurontin) 300 mg PO QID [facility] Last Admin: 12/28/16 09:56 Dose: 300 mg Lamotrigine (Lamictal) 100 mg PO BID [facility] Last Admin: 12/28/16 09:55 Dose: 100 mg Levetiracetam (Keppra) 1,000 mg PO BID [facility] Last Admin: 12/28/16 09:55 Dose: 1,000 mg Magnesium Hydroxide (Milk Of Magnesia) 30 ml PO Q4H PRN PRN Reason: Constipation Last Admin: 12/28/16 09:55 Dose: 30 ml Miscellaneous Medication (Dutasteride [Avodart]) 0.5 mg PO DAILY [facility] Morphine Sulfate (Morphine) 1 mg IV Q6H PRN PRN Reason: Pain, Moderate (4-6) Last Admin: 12/27/16 19:06 Dose: 1 mg Ondansetron HCl (Zofran) 4 mg IV Q8H PRN PRN Reason: N/V unrelieved by Reglan Oxycodone/Acetaminophen (Percocet 5/325) 1 tab PO Q6H PRN PRN Reason: Pain, Moderate (4-6) Last Admin: 12/28/16 09:56 Dose: 1 tab Phenytoin (Dilantin) 300 mg PO QHS [facility] Last Admin: 12/27/16 22:08 Dose: 300 mg Propranolol HCl (Inderal La) 60 mg PO DAILY [facility] Last Admin: 12/28/16 09:55 Dose: 60 mg Simvastatin (Zocor) 20 mg PO QHS [facility] Last Admin: 12/27/16 22:09 Dose: 20 mg Sodium Chloride (Sodium Chloride Flush Syringe 10 Ml) 10 ml IV PRN PRN PRN Reason: LINE FLUSH Tamsulosin HCl (Flomax) 0.4 mg PO QDAY [facility] Last Admin: 12/28/16 09:55 Dose: 0.4 mg Zolpidem Tartrate (Ambien) 5 mg PO QHS PRN PRN Reason: Sleep Last Admin: 12/27/16 22:20 Dose: 5 mg Exam - Constitutional Vitals: Temp Pulse Resp BP Pulse Ox 97.7 F 71 20 114/54 97 12/28/16 07:00 12/28/16 07:00 12/28/16 07:00 12/28/16 07:00 12/28/16 07:00 Results - Labs CBC & Chem 7: 12/28/16 08:51 12/28/16 08:51 Labs: Abnormal lab results 12/28/16 12/28/16 Range/Units 08:51 08:51 Lymph % (Auto) 7.9 L (13.4-35.0) % Lymph # 0.9 L (1.2-5.4) K/mm3 Seg Neutrophils % 89.9 H (40.0-70.0) % Seg Neutrophils # 9.9 H (1.8-7.7) K/mm3 Sodium 135 L (137-145) mmol/L Chloride 94.0 L (98-107) mmol/L Creatinine 0.6 L (0.8-1.5) mg/dL Glucose 184 H (75-100) mg/dL Albumin 3.8 L (3.9-5) g/dL
--- NOTE | 2016-12-28 11:08 | Progress Note ---
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 IV steroids. Supportive care. Possible transfer to [facility] on Thursday Neurology discussed with the patient and his daughter, they verbalized understanding --anxiety; resume his home medications, Supportive care --GERD; continue Protonix --History of seizure; seizure precautions, continue antiepileptics medications --Full CODE STATUS --DVT prophylaxis with Lovenox Physical therapy occupational therapy rehabilitation Possible transfer to [facility] by neurology for neurosurgical evaluation, Tomorrow --DC planning. Initiate Transfer to [facility] tomorrow History Interval history: Recent seen and evaluated medical records reviewed Patient is cachectic, poor oral intake, chronically looking Responding to simple questions appropriately at times Hospitalist Physical - Constitutional Vitals: Temp Pulse Resp BP Pulse Ox 97.7 F 71 20 114/54 97 12/28/16 07:00 12/28/16 07:00 12/28/16 07:00 12/28/16 07:00 12/28/16 07:00 General appearance: Present: no acute distress, well-nourished, other (confused at times) - EENT Eyes: Present: PERRL, EOM intact - Neck Neck: Present: supple, normal ROM - Respiratory Respiratory effort: normal Respiratory: bilateral: diminished, negative: rales, rhonchi, wheezing - Cardiovascular Rhythm: regular Heart Sounds: Present: S1 & S2 - Extremities Extremities: no ischemia, No edema - Abdominal General gastrointestinal: soft, non-tender, non-distended, normal bowel sounds - Integumentary Integumentary: Present: clear, warm - Psychiatric Psychiatric: appropriate mood/affect, other (confused at times) - Neurologic Neurologic: moves all extremities Results - Labs CBC & Chem 7: 12/28/16 08:51 12/28/16 08:51 Labs: Laboratory Last Values WBC 11.0 K/mm3 (4.5-11.0) 12/28/16 08:51 RBC 4.45 M/mm3 (3.65-5.03) 12/28/16 08:51 Hgb 13.8 gm/dl (11.8-15.2) 12/28/16 08:51 Hct 40.8 % (35.5-45.6) 12/28/16 08:51 MCV 92 fl (84-94) 12/28/16 08:51 MCH 31 pg (28-32) 12/28/16 08:51 MCHC 34 % (32-34) 12/28/16 08:51 RDW 14.2 % (13.2-15.2) 12/28/16 08:51 Plt Count 328 K/mm3 (140-440) 12/28/16 08:51 Lymph % (Auto) 7.9 % (13.4-35.0) L 12/28/16 08:51 Falls % (Auto) 2.0 % (0.0-7.3) 12/28/16 08:51 Eos % (Auto) 0.1 % (0.0-4.3) 12/28/16 08:51 Baso % (Auto) 0.1 % (0.0-1.8) 12/28/16 08:51 Lymph # 0.9 K/mm3 (1.2-5.4) L 12/28/16 08:51 Falls # 0.2 K/mm3 (0.0-0.8) 12/28/16 08:51 Eos # 0.0 K/mm3 (0.0-0.4) 12/28/16 08:51 Baso # 0.0 K/mm3 (0.0-0.1) 12/28/16 08:51 Seg Neutrophils % 89.9 % (40.0-70.0) H 12/28/16 08:51 Seg Neutrophils # 9.9 K/mm3 (1.8-7.7) H 12/28/16 08:51 Sodium 135 mmol/L (137-145) L 12/28/16 08:51 Potassium 3.6 mmol/L (3.6-5.0) 12/28/16 08:51 Chloride 94.0 mmol/L (98-107) L 12/28/16 08:51 Carbon Dioxide 26 mmol/L (22-30) 12/28/16 08:51 Anion Gap 19 mmol/L 12/28/16 08:51 BUN 10 mg/dL (9-20) 12/28/16 08:51 Creatinine 0.6 mg/dL (0.8-1.5) L 12/28/16 08:51 Estimated GFR > 60 ml/min 12/28/16 08:51 BUN/Creatinine Ratio 16.66 % 12/28/16 08:51 Glucose 184 mg/dL (75-100) H 12/28/16 08:51 POC Glucose 88 (70-105) 12/26/16 21:28 Calcium 8.9 mg/dL (8.4-10.2) 12/28/16 08:51 Magnesium 2.30 mg/dL (1.7-2.3) 12/28/16 08:51 Total Bilirubin 0.30 mg/dL (0.1-1.2) 12/28/16 08:51 Direct Bilirubin < 0.2 mg/dL (0-0.2) 12/28/16 08:51 AST 18 units/L (5-40) 12/28/16 08:51 ALT 25 units/L (7-56) 12/28/16 08:51 Alkaline Phosphatase 111 units/L (35-129) 12/28/16 08:51 Total Creatine Kinase 26 units/L (55-170) L 12/21/16 18:46 CK-MB (CK-2) < 1.0 ng/mL (0.0-4.0) 12/21/16 18:46 CK-MB (CK-2) Rel Index 3.8 (0-4) 12/21/16 18:46 Troponin T < 0.010 ng/mL (0.00-0.029) 12/21/16 18:46 Total Protein 7.5 g/dL (6.3-8.2) 12/28/16 08:51 Albumin 3.8 g/dL (3.9-5) L 12/28/16 08:51 Albumin/Globulin Ratio 1.0 % 12/28/16 08:51 Triglycerides 104 mg/dL (2-149) 12/22/16 04:00 Cholesterol 145 mg/dL (50-199) 12/22/16 04:00 LDL Cholesterol Direct 47 mg/dL (50-130) L 12/22/16 04:00 HDL Cholesterol 78 mg/dL (40-59) H 12/22/16 04:00 Cholesterol/HDL Ratio 1.85 % 12/22/16 04:00 Lipase 31 units/L (13-60) 12/21/16 18:46 Urine Color Yellow (Yellow) 12/21/16 19:09 Urine Turbidity Clear (Clear) 12/21/16 19:09 Urine pH 6.0 (5.0-7.0) 12/21/16 19:09 Ur Specific [place] 1.010 (1.003-1.030) 12/21/16 19:09 Urine Protein <15 mg/dl mg/dL (Negative) 12/21/16 19:09 Urine Glucose (UA) Neg mg/dL (Negative) 12/21/16 19:09 Urine Ketones Neg mg/dL (Negative) 12/21/16 19:09 Urine Blood Neg (Negative) 12/21/16 19:09 Urine Nitrite Neg (Negative) 12/21/16 19:09 Urine Bilirubin Neg (Negative) 12/21/16 19:09 Urine Urobilinogen < 2.0 mg/dL (<2.0) 12/21/16 19:09 Ur Leukocyte Esterase Neg (Negative) 12/21/16 19:09 Urine WBC (Auto) < 1.0 /HPF (0.0-6.0) 12/21/16 19:09 Urine RBC (Auto) 1.0 /HPF (0.0-6.0) 12/21/16 19:09 U Epithel Cells (Auto) < 1.0 /HPF (0-13.0) 12/21/16 19:09 Phenytoin 6.1 mg/L (10.0-20.0) L 12/21/16 18:54
[2016-12-28] MEDS: XANAX PO SCH ×2 (14:41→21:33)
[2016-12-28] MEDS: DILANTIN PO SCH (21:32)
[2016-12-28] MEDS: ZOCOR PO SCH (21:33)
[2016-12-28] MEDS: AMBIEN PO PRN (21:34)
[2016-12-29 05:44] LABS: Basophils % (Auto) 0.1 % (0.0-1.8); Eosinophils % (Auto) 0.1 % (0.0-4.3); Hemoglobin 12.8 gm/dl (11.8-15.2); Mean Corpuscular HGB Conc 34 % (32-34); Mean Corpuscular Hemoglobin 32 pg (28-32); Mean Corpuscular Volume 91 fl (84-94); Platelet Count 315 K/mm3 (140-440); Red Blood Count 4.05 M/mm3 (3.65-5.03); Red Cell Distribution Width 14.5 % (13.2-15.2); White Blood Count 10.8 K/mm3 (4.5-11.0)
[2016-12-29 05:57] LABS: Anion Gap 17 mmol/L; Blood Urea Nitrogen 11 mg/dL (9-20); Calcium 8.8 mg/dL (8.4-10.2); Carbon Dioxide 26 mmol/L (22-30); Chloride 96.6 mmol/L (98-107); Glucose 120 mg/dL (75-100); Potassium 4.1 mmol/L (3.6-5.0); Sodium 135 mmol/L (137-145)
[2016-12-29] MEDS: DECADRON IV SCH ×3 (06:05→11:27)
[2016-12-29] MEDS: FLOMAX PO SCH (11:26)
[2016-12-29] MEDS: KEPPRA PO SCH ×2 (11:26→22:01)
[2016-12-29] MEDS: FOLVITE PO SCH (11:26)
[2016-12-29] MEDS: NEURONTIN PO SCH ×3 (11:26→22:00)
[2016-12-29] MEDS: LOVENOX SUB-Q SCH (11:27)
[2016-12-29] MEDS: LaMICtal PO SCH ×2 (11:27→22:02)
[2016-12-29] MEDS: ASPIRIN PO SCH (11:28)
[2016-12-29] MEDS: INDERAL LA PO SCH (11:37)
[2016-12-29] MEDS: XANAX PO SCH ×3 (11:38→21:13)
--- NOTE | 2016-12-29 13:44 | Discharge Summary ---
Providers - Providers Date of Admission: 12/21/16 23:57 Date of discharge: 12/29/16 Attending physician: FRANKLYN TRENT Primary care physician: BUSINESS DATA ANALYST Hospitalization Reason for admission: altered mental status ,confusion Condition: Stable Pertinent studies: CT head without contrast; diffuse cerebral edema involving bilateral cerebral hemispheres MRI brain without contrast; abnormal appearance to the left parietal lobe and occipital lobe with local mass effect. Suspicious for an infiltrating neoplastic process MRI brain with contrast; findings consistent with tumor probably glioblastoma multiform, dilated ventricles probably incidental finding CTA head; moderate severe calcific plaques along the cavernous Echocardiogram; left ventricular ejection fraction 55-60%, minimal pericardial effusion CTA neck; moderate to severe calcified plaque within the left carotid bifurcation light Bifurcation, no high-grade stenosis CT abdomen and pelvis without contrast; No gross abnormality noted, moderate to severe calcified plaque along the abdominal aorta Mild to moderate anterior wedging deformity at the T11-T12 suspected to be chronic Hospital course: 76-year-old male patient with significant past medical history of seizure disorder gastroesophageal reflux disease and anxiety who was admitted through emergency room with altered level of consciousness and confusion. Patient also gives history of forgetfulness bloating of vision memory problems for the last 6 months She was initially evaluated and admitted to the hospital stroke workup was initiated, patient was not a candidate for TPA at the time of admission, extensive neuro workup was done as mentioned above. CT head was consistent with diffuse edema. Evaluated by neurologist ,Patient started on IV steroids and he is already on antiepileptic medications. MRI brain with contrast obtained ,Findings are consistent with a brain tumor probably glioblastoma multiforme with dilated ventricles. Neurosurgical services are not available in [facility], Neurology recommended transfer to [facility] for further evaluation and management by neurosurgery. Patient was symptomatically managed, did not have any changes in neurological status Transfer process was initiated, I talked to the [facility] and later discussed the case in detail with the maintenance person neurosurgeon Dr. Huy Banda, who accepted the patient for transfer. At the time of discharge and transfer patient is alert and awake and responding appropriately to simple questions, confused at times Vital signs are stable, [id number] evaluation physical examination did not show any new changes Hemodynamically and clinically stable for discharge and transfer with guarded prognosis Patient's condition treatment and transfer plan discussed in detail with the patient, his daughter, his nurse and the charge nurse Discharge diagnosis; Brain tumor/glioblastoma multiforme Diffuse brain edema History of seizure disorder Metabolic encephalopathy Gastroesophageal reflux disease Hypertension Full code status Disposition: DC/TX-70 ANOTHER TYPE [facility]THCARE Time spent for discharge: 35 min Core Measure Documentation - Palliative Care Palliative Care/ Comfort Measures: Not Applicable - Core Measures Any of the following diagnoses?: none Exam - Constitutional Vitals: Temp Pulse Resp BP Pulse Ox 97.5 F L 81 18 111/52 95 12/29/16 09:46 12/29/16 11:37 12/29/16 09:46 12/29/16 09:46 12/29/16 09:46 General appearance: Present: no acute distress, cachectic, other - EENT Eyes: Present: PERRL - Neck Neck: Present: supple, normal ROM - Respiratory Respiratory effort: normal Respiratory: negative: rales, rhonchi, wheezing - Cardiovascular Rhythm: regular Heart Sounds: Present: S1 & S2 - Extremities Extremities: no ischemia, No edema - Abdominal General gastrointestinal: Present: soft, non-tender, non-distended, normal bowel sounds - Integumentary Integumentary: Present: clear, warm - Musculoskeletal Musculoskeletal: strength equal bilaterally - Psychiatric Psychiatric: appropriate mood/affect, cooperative, other (confused at times) - Neurologic Neurologic: moves all extremities, other (visual defects) Plan Additional Instructions: Transfer to neurosurgical services at [facility] under the care of. Dr. Guzman Banda Follow up with: PRIMARY CARE, [Primary Care Provider] - 3-5 Days
[2016-12-29 18:24] VITALS: BP 117/59
[2016-12-29] MEDS: DILANTIN PO SCH (22:01)
[2016-12-29] MEDS: ZOCOR PO SCH (22:02)
== END 2016-12-29 22:00 | disposition short-term general hospital (02) | DRG 54 ==
LOC: ED 18:20 → 4A 23:57
PROVIDERS: ADMIT Internal Medicine; ATTEND Internal Medicine
DX: C71.9 Malignant neoplasm of brain, unspecified (principal); G93.41 Metabolic encephalopathy; G93.6 Cerebral edema; F41.9 Anxiety disorder, unspecified; K21.9 Gastro-esophageal reflux disease without esophagitis; I65.29 Occlusion and stenosis of unspecified carotid artery; G40.909 Epilepsy, unspecified, not intractable, without status epilepticus; Z82.49 Family history of ischemic heart disease and other diseases of the circulatory system
CPT/HCPCS: 36415; 70450; 70496; 70498; 70551; 70552; 74020; 74176; 80048; 80053; 80061; 80074; 80185; 81001; 82550; 82553; 82962; 83690; 83735; 84484; 85025; 93005; 93010; 93306; A9577; G8978-GP; G8979-GP; G8987-GO; G8988-GO; G8989-GO; J1100; J1650; J2060; J2270; Q9967